=== PATIENT | male | born 1955 | race American Indian/Alaskan Native ===

== ENCOUNTER 2020-04-09 18:36 | Observation (INO) | payer OTHER, SELFPAY ==
[2020-04-09] MEDS ORDERED: SODIUM CHLORIDE 0.9% 1000 ML IV SOLN IV ONE (19:01)
[2020-04-09] MEDS ORDERED: methylPREDNISolone Sod Succinate 125 MG/2 ML INJ IV ONE (19:02)
[2020-04-09] MEDS ORDERED: IPRATROPIUM 0.02% NEBU 2.5 ML IH ONE (19:02)
[2020-04-09] MEDS ORDERED: ALBUTEROL 2.5 MG/3 ML NEBU IH ONE (19:02)
--- NOTE | 2020-04-09 19:38 | XRay Report ---
CHEST 1 VIEW 7:05 PM INDICATION / CLINICAL INFORMATION: Respiratory distress. Acute shortness breath. COMPARISON: None available. FINDINGS: SUPPORT DEVICES: None. HEART / MEDIASTINUM: The heart size and pulmonary vasculature are normal. The aorta is normal in audrey robyn. LUNGS / PLEURA: The lungs are hyperinflated. No other pulmonary or pleural abnormality. No pneumothor ax. ADDITIONAL FINDINGS: No significant additional findings. IMPRESSION: Hyperinflation of the lungs may be seen with emphysema or asthma. Signer Name: Mino Stubbs MD Signed: 04/09/2020 7:33 PM Workstation Name: [id number]
[2020-04-09 20:00] LABS: Hematocrit 29.7 % (35.5-45.6); Mean Corpuscular HGB Conc 30 % (32-34); Mean Corpuscular Volume 76 fl (84-94); Platelet Count 259 K/mm3 (140-440); Red Blood Count 3.91 M/mm3 (3.65-5.03)
[2020-04-09] MEDS ORDERED: cefTRIAXone/NS 2 GM/100 ML 2 GM/100 ML BAG IV SCH (20:00)
[2020-04-09 20:02] LABS: Red Cell Distribution Width 25.9 % (13.2-15.2)
[2020-04-09 20:09] LABS: Alanine Aminotransferase 8 units/L (7-56); Albumin 4.1 g/dL (3.9-5); BUN/Creatinine Ratio 16; Blood Urea Nitrogen 16 mg/dL (9-20); Calcium 9.1 mg/dL (8.4-10.2); Hemolysis Index 1
[2020-04-09 21:34] LABS: Basophils % (Manual) 0 % (0.0-1.8); Eosinophils % (Manual) 0 % (0.0-4.3); Total Cells Counted 100
[2020-04-09 21:41] LABS: Anisocytosis 2+; Hypochromasia 1+
[2020-04-09 21:43] LABS: Ovalocytes Rare; Target Cells Rare; Tear Drop Cells Rare
[2020-04-09 21:44] LABS: Platelet Estimate Consistent w Auto
--- NOTE | 2020-04-09 23:47 | Emergency Department Report ---
ED Asthma HPI - General Chief Complaint: Dyspnea/Respdistress Stated Complaint: DIFFICULTY BREATHING Time Seen by Provider: 04/09/20 18:52 Source: patient, EMS Mode of arrival: Stretcher Limitations: Other - History of Present Illness Initial Comments: Patient is a 64-year-old F [place] male with COPD who is on 2 L of oxygen at home who is presenting with some increased shortness of breath over the last day. Patient states that called paramedics to get a neb treatment since he did not have 1 currently at home. Patient received 2 duo nebs and magnesium in route. He was started on BiPAP on his arrival. He denies chest pain body aches fevers chills. Does have some mild dry cough. - Related Data Allergies Allergy/AdvReac Type Severity Reaction Status Date / Time No Known Allergies Allergy Unverified 04/09/20 18:53 ED Review of Systems ROS: Stated complaint: DIFFICULTY BREATHING Other details as noted in HPI Comment: All other systems reviewed and negative ED Past Medical Hx - Past Medical History Previous Medical History?: Yes Hx Hypertension: Yes Hx COPD: Yes - Surgical History Past Surgical History?: No - Social History Smoking Status: Former Smoker Substance Use Type: None ED Physical Exam - General Limitations: Other General appearance: alert, in no apparent distress - Head Head exam: Present: atraumatic, normocephalic - Eye Eye exam: Present: normal appearance - ENT ENT exam: Present: mucous membranes moist - Neck Neck exam: Present: normal inspection - Respiratory Respiratory exam: Present: respiratory distress, wheezes, prolonged expiratory. Absent: normal lung sounds bilaterally, rales, rhonchi, stridor - Cardiovascular Cardiovascular Exam: Present: regular rate, normal rhythm, normal heart sounds. Absent: systolic murmur, diastolic murmur, rubs, gallop - GI/Abdominal GI/Abdominal exam: Present: soft, normal bowel sounds. Absent: distended, tenderness, guarding, rebound, rigid - Rectal Rectal exam: Present: deferred - Extremities Exam Extremities exam: Present: normal inspection - Back Exam Back exam: Present: normal inspection - Neurological Exam Neurological exam: Present: alert, oriented X3 - Psychiatric Psychiatric exam: Present: normal affect, normal mood - Skin Skin exam: Present: warm, dry, intact, normal color. Absent: rash ED Course Vital Signs 04/09/20 04/09/20 04/09/20 18:45 18:51 19:00 Temperature 94.0 F L Pulse Rate 102 H 99 H 107 H Pulse Rate [ Bilateral Throughout] Respiratory 30 H 31 H 29 H Rate Respiratory Rate [Bilateral Throughout] Blood Pressure 145/80 167/108 O2 Sat by Pulse 100 99 100 Oximetry 04/09/20 04/09/20 04/09/20 19:15 19:25 19:30 Temperature Pulse Rate 104 H 106 H 89 Pulse Rate [ Bilateral Throughout] Respiratory 14 34 H 27 H Rate Respiratory Rate [Bilateral Throughout] Blood Pressure 161/99 167/108 160/93 O2 Sat by Pulse 98 98 100 Oximetry 04/09/20 04/09/20 20:19 22:33 Temperature Pulse Rate Pulse Rate [ 108 H Bilateral Throughout] Respiratory Rate Respiratory 30 H Rate [Bilateral Throughout] Blood Pressure O2 Sat by Pulse 98 Oximetry ED Medical Decision Making - Lab Data Result diagrams: 04/09/20 19:12 04/09/20 19:12 - Radiology Data atient: ZARI UREÑA MR#: [id number] : 1955 Acct:[id number] Age/Sex: 64 / M ADM Date: 04/09/20 Loc: ED Attending Dr: Ordering Physician: SHELIA PERRY MD Date of Service: 04/09/20 Procedure(s): XR chest 1V ap Accession Number(s): [id number] cc: SHELIA PERRY MD Fluoro Time In Minutes: CHEST 1 VIEW 7:05 PM INDICATION / CLINICAL INFORMATION: Respiratory distress. Acute shortness breath. COMPARISON: None available. FINDINGS: SUPPORT DEVICES: None. HEART / MEDIASTINUM: The heart size and pulmonary vasculature are normal. The aorta is normal in caliber. LUNGS / PLEURA: The lungs are hyperinflated. No other pulmonary or pleural abnormality. No pneumothorax. ADDITIONAL FINDINGS: No significant additional findings. IMPRESSION: Hyperinflation of the lungs may be seen with emphysema or asthma. Signer Name: Mino Stubbs MD Signed: 04/09/2020 7:33 PM Workstation Name: [id number] - Medical Decision Making Patient was given additional hour-long neb treatment and Solu-Medrol. Patient stated he felt somewhat improved. Took him off his BiPAP and he was placed back on his 2 L of oxygen. Patient states he is fine as long as he sitting still. Did note that the patient just with swinging his legs over to the side of the bed to urinate did desaturate to the low 90s and his heart rate went from 100- 130. When I went to check on him the patient is was unable to use more than 2-3 words in a sentence. This is improved over approximately 2 minutes Do not believe the patient is ready for discharge at this time. Patient will be admitted for observation. Critical Care Time: Yes (30) Critical care attestation.: If time is entered above; I have spent that time in minutes in the direct care of this critically ill patient, excluding procedure time. ED Disposition Clinical Impression: COPD exacerbation Disposition: DC-09 OP ADMIT IP TO THIS HOSP Is pt being admited?: Yes Does the pt Need Aspirin: No Condition: Stable Instructions: Chronic Obstructive Pulmonary Disease (ED) Time of Disposition: 23:51
[2020-04-10] MEDS ORDERED: MORPHINE 2 MG/1 ML INJ IV PRN (00:39)
[2020-04-10] MEDS ORDERED: ACETAMINOPHEN 325 MG TAB PO PRN (00:39)
[2020-04-10] MEDS ORDERED: MAGNESIUM HYDROXIDE (MOM) ORAL LIQD UDC PO PRN (00:39)
[2020-04-10] MEDS ORDERED: ONDANSETRON 4 MG/2 ML INJ IV PRN (00:39)
--- NOTE | 2020-04-10 00:55 | History and Physical Report ---
History of Present Illness Date of examination: 04/09/20 Date of admission: 04/09/20 23:51 Chief complaint: Shortness of breath History of present illness: 64-year-old male with known history of hypertension and COPD on 2 L of oxygen at home presenting to the emergency room today complaining of shortness of breath. Patient did not have any nebulizing treatments at home and therefore called EMS. In route to the hospital patient received DuoNeb treatment and IV magnesium. Patient denies any chest pain, no fever or chills, no nausea vomiting and no abdominal pain. No headache or dizziness. Patient denies any sick contacts and no recent travel. He denies any contact with anyone with COVID-19. Work-up in the emergency room chest x-ray did not show any acute findings. Patient is being admitted for COPD exacerbation. Past History Past Medical History: COPD, hypertension Past Surgical History: No surgical history Social history: smoking (Smokes 1/2 pack of cigarette daily) Family history: no significant family history Medications and Allergies Allergies Allergy/AdvReac Type Severity Reaction Status Date / Time No Known Allergies Allergy Unverified 04/09/20 18:53 Active Meds: Active Medications Acetaminophen (Tylenol) 650 mg PO Q4H PRN PRN Reason: Pain MILD(1-3)/Fever >100.5/HERMAN Albuterol/Ipratropium (Duoneb *Not For Prn Use*) 1 ampul IH Q4HRT [facility] Heparin Sodium (Porcine) (Heparin) 5,000 unit SUB-Q Q8HR [facility] Ceftriaxone Sodium (Rocephin/Ns 2 Gm/100 Ml) 2 gm in 100 mls @ 200 mls/hr IV Q24H [facility]LE; Protocol Last Admin: 04/09/20 19:24 Dose: 200 mls/hr Documented by: Azithromycin 500 mg/ Sodium (Chloride) 250 mls @ 250 mls/hr IV Q24HR [facility]ERELLE; Prot ocol Magnesium Hydroxide (Milk Of Magnesia) 30 ml PO Q4H PRN PRN Reason: Constipation Methylprednisolone Sodium Succinate (Solu-Medrol) 40 mg IV Q8HR [facility] Morphine Sulfate (Morphine) 2 mg IV Q4H PRN PRN Reason: Pain, Moderate (4-6) Ondansetron HCl (Zofran) 4 mg IV Q8H PRN PRN Reason: Nausea And Vomiting Sodium Chloride (Sodium Chloride Flush Syringe 10 Ml) 10 ml IV BID CHERELLE Sodium Chloride (Sodium Chloride Flush Syringe 10 Ml) 10 ml IV PRN PRN PRN Reason: LINE FLUSH Review of Systems Constitutional: no fever, no chills Ears, nose, mouth and throat: no nasal congestion, no sore throat Cardiovascular: no chest pain, no palpitations Respiratory: cough, shortness of breath Gastrointestinal: no abdominal pain, no nausea, no vomiting, no diarrhea Genitourinary Male: no dysuria, no hematuria, no flank pain Musculoskeletal: no neck pain, no low back pain Integumentary: no rash, no pruritis Neurological: no headaches, no confusion Psychiatric: no anxiety, no depression Exam - Constitutional Vitals: Temp Pulse Resp BP Pulse Ox 94.0 F L 108 H 30 H 160/93 98 04/09/20 18:45 04/09/20 20:19 04/09/20 20:19 04/09/20 19:30 04/09/20 22:33 General appearance: Present: mild distress, well-nourished - EENT Eyes: Present: PERRL, EOM intact. Absent: scleral icterus ENT: hearing intact, clear oral mucosa, dentition normal - Neck Neck: Present: supple, normal ROM - Respiratory Respiratory effort: normal Respiratory: bilateral: wheezing - Cardiovascular Rhythm: regular Heart Sounds: Present: S1 & S2. Absent: gallop, systolic murmur, rub - Extremities Extremities: no ischemia, pulses intact, pulses symmetrical, No edema, normal temperature, Full ROM Peripheral Pulses: within normal limits - Abdominal General gastrointestinal: Present: soft, non-tender, non-distended, normal bowel sounds. Absent: mass - Integumentary Integumentary: Present: clear, warm, dry - Musculoskeletal Musculoskeletal: strength equal bilaterally - Psychiatric Psychiatric: appropriate mood/affect, intact judgment & insight, memory intact, cooperative - Neurologic Neurologic: CNII-XII intact, no focal deficits, moves all extremities Results - Labs CBC & Chem 7: 04/09/20 19:12 04/09/20 19:12 Labs: Abnormal lab results 04/09/20 04/09/20 Range/Units 19:12 19:12 Hgb 9.0 L (11.8-15.2) gm/dl Hct 29.7 L (35.5-45.6) % MCV 76 L (84-94) fl MCH 23 L (28-32) pg MCHC 30 L (32-34) % RDW 25.9 H (13.2-15.2) % Seg Neuts % (Manual) 90.0 H (40.0-70.0) % Lymphocytes % (Manual) 7.0 L (13.4-35.0) % Seg Neutrophils # Man 9.7 H (1.8-7.7) K/mm3 Lymphocytes # (Manual) 0.8 L (1.2-5.4) K/mm3 Glucose 156 H (75-100) mg/dL Assessment and Plan - Patient Problems (1) COPD exacerbation Current Visit: Yes Status: Acute Plan to address problem: Patient placed on nebulizing treatments and IV steroid. We will keep O2 saturation greater or equal to 94%. (2) Hypertension Current Visit: Yes Status: Acute Plan to address problem: We will resume routine home medications once are reconciled. Will monitor vital signs closely. (3) Tobacco abuse Current Visit: Yes Status: Acute Plan to address problem: Patient counseled on quitting tobacco abuse. (4) DVT prophylaxis Current Visit: Yes Status: Acute Plan to address problem: Patient placed on subcutaneous heparin. (5) Full code status Current Visit: Yes Status: Acute
[2020-04-10] MEDS: IPRATROPIUM/ALBUTEROL SULFATE 3 ML AMPUL.NEB IH SCH ×2 (04:00→07:53)
[2020-04-10] MEDS ORDERED: IPRATROPIUM/ALBUTEROL SULFATE 3 ML AMPUL.NEB IH ONE (07:40)
[2020-04-10] MEDS ORDERED: methylPREDNISolone Sod Succinate 40 MG/1 ML INJ ONE (08:17)
[2020-04-10] MEDS ORDERED: HEPARIN 5,000 UNIT/1 ML VIAL ONE (08:17)
[2020-04-10] MEDS: methylPREDNISolone Sod Succinate 40 MG/1 ML INJ IV SCH ×3 (08:42→22:05)
[2020-04-10] MEDS: HEPARIN 5,000 UNIT/1 ML VIAL SUB-Q SCH ×3 (08:42→22:06)
[2020-04-10] MEDS: AZITHROMYCIN 500 MG in SODIUM CHLORIDE 0.9% 250ML 250 ML IV SCH ×2 (08:43→10:47)
[2020-04-10 09:06] LABS: Bilirubin,Urine NEG (Negative); Blood,Urine NEG (Negative); Color,Urine Yellow (Yellow); Mucus,Urine FEW /HPF; Protein,Urine <15 mg/dL mg/dL (Negative); Urobilinogen,Urine < 2.0 mg/dL (<2.0)
[2020-04-10] MEDS ORDERED: ALBUTEROL 2.5 MG/3 ML NEBU IH PRN (09:36)
[2020-04-10 11:23] LABS: C-Reactive Protein 0.1 mg/dL (0.00-1.30)
--- NOTE | 2020-04-10 12:59 | Progress Note ---
Assessment and Plan Assessment and plan: 64-year-old male with known history of hypertension and COPD on 2 L of oxygen at home presenting to the emergency room today complaining of shortness of breath. Patient did not have any nebulizing treatments at home and therefore called EMS. In route to the hospital patient received DuoNeb treatment and IV magnesium. Patient denies any chest pain, no fever or chills, no nausea vomiting and no abdominal pain. No headache or dizziness. Patient denies any sick contacts and no recent travel. He denies any contact with anyone with COVID-19. Work-up in the emergency room chest x-ray did not show any acute findings. Patient is being admitted for COPD exacerbation. (1) COPD exacerbation Current Visit: Yes Status: Acute Plan to address problem: Patient placed on nebulizing treatments and IV steroid. We will keep O2 saturation greater or equal to 94%. Considering current pandemic will rule out COVID-19. (2) Hypertension Current Visit: Yes Status: Acute Plan to address problem: We will resume routine home medications once are reconciled. Will monitor vital signs closely. (3) Tobacco abuse Current Visit: Yes Status: Acute Plan to address problem: Patient counseled on quitting tobacco abuse. (4) DVT prophylaxis Current Visit: Yes Status: Acute Plan to address problem: Patient placed on subcutaneous heparin. (5) Full code status Current Visit: Yes Status: Acute Anticipate discharge in 24 hours will need to replenish off home meds. Plan discussed with the patient in detail History Interval history: Patient seen and examined reports improvement in symptoms. He reports that he does have history of COPD but run out of his medications. Hospitalist Physical - Physical exam Narrative exam: VITAL SIGNS: Reviewed. GENERAL: The patient appears normally developed, Vital signs as documented. HEAD: No signs of head trauma. EYES: Pupils are equal. Extraocular motions intact. EARS: Hearing grossly intact. MOUTH: Oropharynx is normal. NECK: No adenopathy, no JVD. CHEST: Chest with diminished breath sounds bilaterally. No wheezes, rales, or rhonchi. CARDIAC: Regular rate and rhythm. S1 and S2, without murmurs, gallops, or rubs. VASCULAR: No Edema. Peripheral pulses normal and equal in all extremities. ABDOMEN: Soft, non tender and non distended. No rebound or guarding, and no masses palpated. Bowel Sounds normal. MUSCULOSKELETAL: Good range of motion of all major joints. Extremities without clubbing, cyanosis or edema. NEUROLOGIC EXAM: Alert and oriented x 3 No focal sensory or strength deficits. Speech normal. Follows commands. PSYCHIATRIC: Mood normal. SKIN: detail exam as documented in skin assessment - Constitutional Vitals: Temp Pulse Resp BP Pulse Ox 94.0 F L 89 24 142/83 95 04/09/20 18:45 04/10/20 09:45 04/10/20 09:45 04/10/20 03:02 04/10/20 09:45 General appearance: Present: mild distress, well-nourished Results - Labs CBC & Chem 7: 04/09/20 19:12 04/10/20 09:57 Labs: Laboratory Last Values WBC 10.8 K/mm3 (4.5-11.0) 04/09/20 19:12 RBC 3.91 M/mm3 (3.65-5.03) 04/09/20 19:12 Hgb 9.0 gm/dl (11.8-15.2) L 04/09/20 19:12 Hct 29.7 % (35.5-45.6) L 04/09/20 19:12 MCV 76 fl (84-94) L 04/09/20 19:12 MCH 23 pg (28-32) L 04/09/20 19:12 MCHC 30 % (32-34) L 04/09/20 19:12 RDW 25.9 % (13.2-15.2) H 04/09/20 19:12 Plt Count 259 K/mm3 (140-440) 04/09/20 19:12 Add Manual Diff Complete 04/09/20 19:12 Total Counted 100 04/09/20 19:12 Seg Neuts % (Manual) 90.0 % (40.0-70.0) H 04/09/20 19:12 Band Neutrophils % 0 % 04/09/20 19:12 Lymphocytes % (Manual) 7.0 % (13.4-35.0) L 04/09/20 19:12 Reactive Lymphs % (Man) 0 % 04/09/20 19:12 Monocytes % (Manual) 3.0 % (0.0-7.3) 04/09/20 19:12 Eosinophils % (Manual) 0 % (0.0-4.3) 04/09/20 19:12 Basophils % (Manual) 0 % (0.0-1.8) 04/09/20 19:12 Metamyelocytes % 0 % 04/09/20 19:12 Myelocytes % 0 % 04/09/20 19:12 Promyelocytes % 0 % 04/09/20 19:12 Blast Cells % 0 % 04/09/20 19:12 Nucleated RBC % Not Reportable 04/09/20 19:12 Seg Neutrophils # Man 9.7 K/mm3 (1.8-7.7) H 04/09/20 19:12 Band Neutrophils # 0.0 K/mm3 04/09/20 19:12 Lymphocytes # (Manual) 0.8 K/mm3 (1.2-5.4) L 04/09/20 19:12 Abs React Lymphs (Man) 0.0 K/mm3 04/09/20 19:12 Monocytes # (Manual) 0.3 K/mm3 (0.0-0.8) 04/09/20 19:12 Eosinophils # (Manual) 0.0 K/mm3 (0.0-0.4) 04/09/20 19:12 Basophils # (Manual) 0.0 K/mm3 (0.0-0.1) 04/09/20 19:12 Metamyelocytes # 0.0 K/mm3 04/09/20 19:12 Myelocytes # 0.0 K/mm3 04/09/20 19:12 Promyelocytes # 0.0 K/mm3 04/09/20 19:12 Blast Cells # 0.0 K/mm3 04/09/20 19:12 WBC Morphology Not Reportable 04/09/20 19:12 Hypersegmented Neuts Not Reportable 04/09/20 19:12 Hyposegmented Neuts Not Reportable 04/09/20 19:12 Hypogranular Neuts Not Reportable 04/09/20 19:12 Smudge Cells Not Reportable 04/09/20 19:12 Toxic Granulation Not Reportable 04/09/20 19:12 Toxic Vacuolation Not Reportable 04/09/20 19:12 Dohle Bodies Not Reportable 04/09/20 19:12 Pelger-Huet Anomaly Not Reportable 04/09/20 19:12 Jacinta Rods Not Reportable 04/09/20 19:12 Platelet Estimate Consistent w auto 04/09/20 19:12 Clumped Platelets Not Reportable 04/09/20 19:12 Plt Clumps, EDTA Not Reportable 04/09/20 19:12 Large Platelets Not Reportable 04/09/20 19:12 Giant Platelets Not Reportable 04/09/20 19:12 Platelet Satelliting Not Reportable 04/09/20 19:12 Plt Morphology Comment Not Reportable 04/09/20 19:12 RBC Morphology Not Reportable 04/09/20 19:12 Dimorphic RBCs Not Reportable 04/09/20 19:12 Polychromasia Rare 04/09/20 19:12 Hypochromasia 1+ 04/09/20 19:12 Poikilocytosis Not Reportable 04/09/20 19:12 Anisocytosis 2+ 04/09/20 19:12 Microcytosis Rare 04/09/20 19:12 Macrocytosis Not Reportable 04/09/20 19:12 Spherocytes Not Reportable 04/09/20 19:12 Pappenheimer Bodies Not Reportable 04/09/20 19:12 Sickle Cells Not Reportable 04/09/20 19:12 Target Cells Rare 04/09/20 19:12 Tear Drop Cells Rare 04/09/20 19:12 Ovalocytes Rare 04/09/20 19:12 Helmet Cells Not Reportable 04/09/20 19:12 [place] Bodies Not Reportable 04/09/20 19:12 [place] Rings Not Reportable 04/09/20 19:12 [place] Cells Not Reportable 04/09/20 19:12 Bite Cells Not Reportable 04/09/20 19:12 Crenated Cell Not Reportable 04/09/20 19:12 Elliptocytes Not Reportable 04/09/20 19:12 Acanthocytes (Spur) Not Reportable 04/09/20 19:12 Rouleaux Not Reportable 04/09/20 19:12 Hemoglobin C Crystals Not Reportable 04/09/20 19:12 Schistocytes Not Reportable 04/09/20 19:12 Malaria parasites Not Reportable 04/09/20 19:12 Lefty Bodies Not Reportable 04/09/20 19:12 Hem Pathologist Commnt No 04/09/20 19:12 D-Dimer < 135.00 ng/mlDDU (0-234) 04/10/20 09:57 Sodium 143 mmol/L (137-145) 04/09/20 19:12 Potassium 4.1 mmol/L (3.6-5.0) 04/09/20 19:12 Chloride 104.8 mmol/L (98-107) 04/09/20 19:12 Carbon Dioxide 29 mmol/L (22-30) 04/09/20 19:12 Anion Gap 13 mmol/L 04/09/20 19:12 BUN 16 mg/dL (9-20) 04/09/20 19:12 Creatinine 1.0 mg/dL (0.8-1.3) 04/09/20 19:12 Estimated GFR > 60 ml/min 04/09/20 19:12 BUN/Creatinine Ratio 16 % 04/09/20 19:12 Glucose 100 mg/dL (75-100) 04/10/20 09:57 Lactic Acid 1.30 mmol/L (0.7-2.0) 04/09/20 23:58 Calcium 9.1 mg/dL (8.4-10.2) 04/09/20 19:12 Ferritin 5.5 ng/mL (30.0-300.0) L 04/10/20 09:57 Total Bilirubin 0.40 mg/dL (0.1-1.2) 04/09/20 19:12 AST 11 units/L (5-40) 04/09/20 19:12 ALT 8 units/L (7-56) 04/09/20 19:12 Alkaline Phosphatase 50 units/L (35-129) 04/09/20 19:12 Lactate Dehydrogenase 224 units/L (91-180) H 04/10/20 09:57 C-Reactive Protein 0.10 mg/dL (0.00-1.30) 04/10/20 09:57 Total Protein 6.8 g/dL (6.3-8.2) 04/09/20 19:12 Albumin 4.1 g/dL (3.9-5) 04/09/20 19:12 Albumin/Globulin Ratio 1.5 % 04/09/20 19:12 Procalcitonin < 0.05 ng/mL (<0.15) 04/10/20 09:57 Urine Color Yellow (Yellow) 04/10/20 08:50 Urine Turbidity Clear (Clear) 04/10/20 08:50 Urine pH 6.0 (5.0-7.0) 04/10/20 08:50 Ur Specific [place] 1.018 (1.003-1.030) 04/10/20 08:50 Urine Protein <15 mg/dl mg/dL (Negative) 04/10/20 08:50 Urine Glucose (UA) Neg mg/dL (Negative) 04/10/20 08:50 Urine Ketones Neg mg/dL (Negative) 04/10/20 08:50 Urine Blood Neg (Negative) 04/10/20 08:50 Urine Nitrite Neg (Negative) 04/10/20 08:50 Urine Bilirubin Neg (Negative) 04/10/20 08:50 Urine Urobilinogen < 2.0 mg/dL (<2.0) 04/10/20 08:50 Ur Leukocyte Esterase Neg (Negative) 04/10/20 08:50 Urine WBC (Auto) 1.0 /HPF (0.0-6.0) 04/10/20 08:50 Urine RBC (Auto) 1.0 /HPF (0.0-6.0) 04/10/20 08:50 Urine Mucus Few /HPF 04/10/20 08:50 Microbiology: Microbiology 04/09/20 19:12 Peripheral/Venous Blood Culture - Preliminary Culture in Progress 04/09/20 19:12 Peripheral/Venous Blood Culture - Preliminary Culture in Progress Koroma/IV: Voiding Method Toilet IV Catheter Type [Left Forearm INT / Saline Lock ] Active Medications - Current Medications Current Medications: Generic Name Dose Route Start Last Admin Trade Name Freq PRN Reason Stop Dose Admin Acetaminophen 650 mg 04/10/20 00:39 Tylenol PO Q4H PRN Pain MILD(1-3)/Fever >100.5/HERMAN Albuterol 2.5 mg 04/10/20 09:36 Proventil IH Q4HRT PRN Shortness Of Breath Arformoterol Tartrate 15 mcg 04/10/20 20:00 Brovana Nebu IH Q12HRT [facility]ERELLE Budesonide 0.5 mg 04/10/20 20:00 Pulmicort IH Q12HRT [facility] Heparin Sodium (Porcine) 5,000 unit 04/10/20 06:00 04/10/20 08:42 Heparin SUB-Q 5,000 unit Q8HR [facility]ERELLE Administration Ceftriaxone Sodium 2 gm in 100 mls @ 200 mls/hr 04/09/20 20:00 04/09/20 19:24 Rocephin/Ns 2 Gm/100 Ml IV 200 mls/hr Q24H [facility]ERELLE Administration Protocol Azithromycin 500 mg/ Sodium 250 mls @ 250 mls/hr 04/09/20 20:00 04/10/20 10:47 Chloride IV Not Given Q24HR [facility] Protocol Magnesium Hydroxide 30 ml 04/10/20 00:39 Milk Of Magnesia PO Q4H PRN Constipation Methylprednisolone Sodium Succinate 40 mg 04/10/20 06:00 04/10/20 08:42 Solu-Medrol IV 40 mg Q8HR CHERELLE Administration Montelukast Sodium 10 mg 04/10/20 22:00 Singulair PO QHS [facility] Morphine Sulfate 2 mg 04/10/20 00:39 Morphine IV Q4H PRN Pain, Moderate (4-6) Ondansetron HCl 4 mg 04/10/20 00:39 Zofran IV Q8H PRN Nausea And Vomiting Sodium Chloride 10 ml 04/10/20 10:00 04/10/20 10:43 Sodium Chloride Flush Syringe 10 Ml IV Not Given BID CHERELLE Sodium Chloride 10 ml 04/10/20 00:39 Sodium Chloride Flush Syringe 10 Ml IV PRN PRN LINE FLUSH
[2020-04-10] MEDS: BUDESONIDE 0.5 MG/2 ML NEBU IH SCH (21:24)
[2020-04-10] MEDS: ARFORMOTEROL 15 MCG/2 ML NEBU IH SCH (21:24)
[2020-04-10] MEDS ORDERED: MONTELUKAST 10 MG TAB PO SCH (22:00)
[2020-04-11] MEDS: HEPARIN 5,000 UNIT/1 ML VIAL SUB-Q SCH ×2 (06:08→13:46)
[2020-04-11] MEDS: methylPREDNISolone Sod Succinate 40 MG/1 ML INJ IV SCH ×2 (06:08→13:46)
--- NOTE | 2020-04-11 08:12 | Discharge Summary ---
Providers - Providers Date of Admission: 04/09/20 23:51 Attending physician: HARMAN LANDON MD Primary care physician: TOOL CRIB CLERK Hospitalization Reason for admission: shortness of breath Condition: Stable Hospital course: 64-year-old male with known history of hypertension and COPD on 2 L of oxygen at home presenting to the emergency room today complaining of shortness of breath. Patient did not have any nebulizing treatments at home and therefore called EMS. In route to the hospital patient received DuoNeb treatment and IV magnesium. Patient denies any chest pain, no fever or chills, no nausea vomiting and no abdominal pain. No headache or dizziness. Patient denies any sick contacts and no recent travel. He denies any contact with anyone with COVID-19. Work-up in the emergency room chest x-ray did not show any acute findings. Patient is being admitted for COPD exacerbation. 04/11 Patient reports that he is at his base line level at this time. He has home oxygen. He reports that he ran out of his nebulizer medications. Considering the current global pandemic I have ordered COVID-19 testing to ensure that there is no underlying viral infection. Prior to discharge. I do not have any family contact information and he states that he still cannot find his family. Home meds were renewed. (1) COPD exacerbation Current Visit: Yes Status: Acute Plan to address problem: Patient placed on nebulizing treatments and IV steroid. We will keep O2 satu ration greater or equal to 94%. Considering current pandemic will rule out COVID-19. (2) Hypertension Current Visit: Yes Status: Acute Plan to address problem: We will resume routine home medications once are reconciled. Will monitor vital signs closely. (3) Tobacco abuse Current Visit: Yes Status: Acute Plan to address problem: Patient counseled on quitting tobacco abuse. 50 minutes counseling provided risk associated with having the home O2 also discussed in detail. ( Disposition: DC-01 TO HOME OR SELFCARE Time spent for discharge: 35 minutes Core Measure Documentation - Palliative Care Palliative Care/ Comfort Measures: Not Applicable - Core Measures Any of the following diagnoses?: none Exam - Physical Exam Narrative exam: VITAL SIGNS: Reviewed. GENERAL: The patient appears normally developed, Vital signs as documented. HEAD: No signs of head trauma. EYES: Pupils are equal. Extraocular motions intact. EARS: Hearing grossly intact. MOUTH: Oropharynx is normal. NECK: No adenopathy, no JVD. CHEST: Chest with diminished breath sounds bilaterally. No wheezes, rales, or rhonchi. CARDIAC: Regular rate and rhythm. S1 and S2, without murmurs, gallops, or rubs. VASCULAR: No Edema. Peripheral pulses normal and equal in all extremities. ABDOMEN: Soft, non tender and non distended. No rebound or guarding, and no masses palpated. Bowel Sounds normal. MUSCULOSKELETAL: Good range of motion of all major joints. Extremities without clubbing, cyanosis or edema. NEUROLOGIC EXAM: Alert and oriented x 3 No focal sensory or strength deficits. Speech normal. Follows commands. PSYCHIATRIC: Mood normal. SKIN: detail exam as documented in skin assessment - Constitutional Vitals: Temp Pulse Resp BP Pulse Ox 98.0 F 90 18 151/79 96 04/10/20 19:37 04/11/20 00:00 04/10/20 21:24 04/10/20 19:37 04/10/20 21:29 Plan Activity: advance as tolerated, fall precautions Diet: low fat Special Instructions: record daily weights, record daily BP diary Additional Instructions: Follow with primary business controller. Patient reports that he follows at the [place]. Follow up with: PRIMARY CARE, [Primary Care Provider] - 7 Days Prescriptions: Montelukast Sodium 10 mg PO DAILY #30 tablet Prednisone [predniSONE 5 mg (6-Day Pack, 21 Tabs)] 5 mg PO .TAPER #1 tab.ds.pk ALBUTEROL NEB's [Proventil 0.083% NEBS] 2.5 mg IH TID PRN #90 neb PRN Reason: Wheezing Budesonide/Formoterol Fumarate [Symbicort 160-4.5 Mcg Inhaler] 10.2 gm IH BID #1 hfa.aer.ad Azithromycin [Zithromax TAB] 500 mg PO QDAY #5 tablet
[2020-04-11 08:23] LABS: INR 1.07 (0.87-1.13)
[2020-04-11 08:27] LABS: BUN/Creatinine Ratio 20; Blood Urea Nitrogen 18 mg/dL (9-20); Calcium 9.2 mg/dL (8.4-10.2); Hemolysis Index 3
[2020-04-11] MEDS: BUDESONIDE 0.5 MG/2 ML NEBU IH SCH (08:40)
[2020-04-11] MEDS: ARFORMOTEROL 15 MCG/2 ML NEBU IH SCH (08:40)
[2020-04-11 08:48] LABS: Hematocrit 25.9 % (35.5-45.6); Hemoglobin 8.1 gm/dl (11.8-15.2); Mean Corpuscular HGB Conc 31 % (32-34); Mean Corpuscular Volume 74 fl (84-94)
[2020-04-11 09:13] LABS: Platelet Count 176 K/mm3 (140-440); Red Cell Distribution Width 25.5 % (13.2-15.2)
[2020-04-11] MEDS ORDERED: AZITHROMYCIN 250 MG TAB PO SCH (10:00)
[2020-04-11 11:17] LABS: Eosinophils % (Manual) 0 % (0.0-4.3); Monocytes % (Manual) 0 % (0.0-7.3); Total Cells Counted 100
[2020-04-11 11:18] LABS: Hypochromasia 1+; Target Cells 1+; Tear Drop Cells Few
[2020-04-11 11:19] LABS: Platelet Estimate Consistent w Auto
[2020-04-11 12:37] VITALS: BP 136/63
== END 2020-04-11 15:37 | disposition home or self-care (01) ==
LOC: ED 18:36 → 4A 23:51
PROVIDERS: ADMIT Internal Medicine Geriatric Medicine; ATTEND Internal Medicine
DX: J44.1 Chronic obstructive pulmonary disease with (acute) exacerbation (principal); Z20.828 Contact with and (suspected) exposure to other viral communicable diseases; I10 Essential (primary) hypertension; F17.210 Nicotine dependence, cigarettes, uncomplicated; Z79.899 Other long term (current) drug therapy
CPT/HCPCS: 36415; 71045; 80048; 80053; 81001; 82140; 82728; 82947; 83615; 84145; 85025; 85379; 85610; 86140; 87040; 94640; 94644; 94760; 96365; 96367; 96372; 96375; 96376; 99291; G0378; J0456; J0696; J1644; J2920; J2930; J7030; J7050; U0003; 85007; 99406

== ENCOUNTER 2020-06-16 03:42 | Emergency (ER) | payer OTHER ==
[2020-06-16] MEDS ORDERED: SODIUM CHLORIDE 0.9% 500 ML 500 ML IV ONE (03:45)
[2020-06-16] MEDS ORDERED: IPRATROPIUM 0.02% NEBU 2.5 ML IH ONE (03:45)
[2020-06-16] MEDS ORDERED: ALBUTEROL 2.5 MG/3 ML NEBU IH ONE (03:45)
--- NOTE | 2020-06-16 03:48 | Emergency Department Report ---
ED General Adult HPI - General Chief complaint: Dyspnea/Respdistress Stated complaint: COPD PUI?: Yes Time Seen by Provider: 06/16/20 03:45 Source: patient, EMS (Verbal report received from emergency medical services. EMS documentation not available at time of chart dictation ), RN notes reviewed, old records reviewed Mode of arrival: Stretcher Limitations: No Limitations - History of Present Illness Initial comments: The patient was evaluated in the emergency department for symptoms described in the history of present illness. He/she was evaluated in the context of the global COVID-19 pandemic, which necessitated consideration that the patient might be at risk for infection with the virus that causes COVID-19. Instit utional protocols and algorithms that pertain to the evaluation of patients at risk for COVID-19 are in a state of rapid change based on information released by regulatory bodies including the CDC and federal and state organizations. These policies and algorithms were followed during the patient's care in the emergency department. Please note that these policies, procedures and recommendations changed on a rapid basis. During the entire history and physical examination, had a complete personal protective equipment. Primary care doctor: [facility] Past medical history: COPD, on chronic home oxygen The patient is a 65-year-old gentleman. He is not known to myself previously. He is brought to the hospital by emergency medical services with a complaint of painless shortness of breath. Symptoms started a few hours ago. Patient has been compliant with home oxygen. Denies fever, chills, loss of taste and smell. No exposure to Covid. No leg pain or leg swelling. No recent surgery or hospitalizations. EMS reports the patient was hypoxic, wheezing, and moderate respiratory distress in the field. Patient given steroids, magnesium, CPAP and albuterol. These have markedly improved the patient's symptoms. He states that he feels almost back to baseline. He has chronic cough. No mucus production which is new or different. He is not having physical pain at this time. -: Sudden, hour(s) Consistency: constant, now resolved Improves with: medication, other Worsens with: movement - Related Data Home Medications Medication Instructions Recorded Confirmed Last Taken Amiloride HCl-Hctz 5-50 mg Tab 5 - 50 mg PO ONCE 04/10/20 04/10/20 04/08/20 Hydroxyurea 500 mg PO TID 04/10/20 04/10/20 04/08/20 Sildenafil 100 mg PO PRN 04/10/20 04/10/20 Unknown Previous Rx's Medication Instructions Recorded Last Taken Type Montelukast Sodium 10 mg PO DAILY #30 tablet 04/11/20 Unknown Rx ALBUTEROL NEB's [Proventil 0.083% 2.5 mg IH TID PRN #90 neb 06/16/20 Unknown Rx NEBS] Albuterol Sulfate [Proair 90 mcg IH Q4HR PRN #2 aer.pow.ba 06/16/20 Unknown Rx Respiclick] Azithromycin [Zithromax TAB] 500 mg PO QDAY #5 tablet 06/16/20 Unknown Rx Budesonide/Formoterol Fumarate 10.2 gm IH BID #1 hfa.aer.ad 06/16/20 Unknown Rx [Symbicort 160-4.5 Mcg Inhaler] Ferrous Sulfate [Feosol 325 MG tab] 325 mg PO TID #90 tablet 06/16/20 Unknown Rx Ipratropium [Atrovent NEB] 0.5 mg IH Q4HR #2 ml 06/16/20 Unknown Rx Prednisone [predniSONE 5 mg (6-Day 5 mg PO .TAPER #1 tab.ds.pk 06/16/20 Unknown Rx Pack, 21 Tabs)] Allergies Allergy/AdvReac Type Severity Reaction Status Date / Time No Known Allergies Allergy Unverified 04/09/20 18:53 ED Review of Systems ROS: Stated complaint: COPD Other details as noted in HPI Constitutional: malaise. denies: fever Eyes: denies: eye discharge ENT: congestion Respiratory: cough, shortness of breath, wheezing Cardiovascular: denies: chest pain Gastrointestinal: denies: abdominal pain Genitourinary: denies: dysuria Musculoskeletal: denies: back pain Neurological: denies: headache Hematological/Lymphatic: denies: easy bleeding ED Past Medical Hx - Past Medical History Hx Hypertension: Yes Hx COPD: Yes - Social History Smoking Status: Current Every Day Smoker - Medications Home Medications: Home Medications Medication Instructions Recorded Confirmed Last Taken Type Amiloride HCl-Hctz 5-50 mg Tab 5 - 50 mg PO ONCE 04/10/20 04/10/20 04/08/20 History Hydroxyurea 500 mg PO TID 04/10/20 04/10/20 04/08/20 History Sildenafil 100 mg PO PRN 04/10/20 04/10/20 Unknown History Montelukast Sodium 10 mg PO DAILY #30 tablet 04/11/20 Unknown Rx ALBUTEROL NEB's [Proventil 0.083% 2.5 mg IH TID PRN #90 neb 06/16/20 Unknown Rx NEBS] Albuterol Sulfate [Proair 90 mcg IH Q4HR PRN #2 aer.pow.ba 06/16/20 Unknown Rx Respiclick] Azithromycin [Zithromax TAB] 500 mg PO QDAY #5 tablet 06/16/20 Unknown Rx Budesonide/Formoterol Fumarate 10.2 gm IH BID #1 hfa.aer.ad 06/16/20 Unknown Rx [Symbicort 160-4.5 Mcg Inhaler] Ferrous Sulfate [Feosol 325 MG tab] 325 mg PO TID #90 tablet 06/16/20 Unknown Rx Ipratropium [Atrovent NEB] 0.5 mg IH Q4HR #2 ml 06/16/20 Unknown Rx Prednisone [predniSONE 5 mg (6-Day 5 mg PO .TAPER #1 tab.ds.pk 06/16/20 Unknown Rx Pack, 21 Tabs)] ED Physical Exam - General Limitations: No Limitations General appearance: alert, anxious - Head Head exam: Present: atraumatic, normocephalic - Eye Eye exam: Present: normal appearance, EOMI. Absent: nystagmus - ENT ENT exam: Present: normal exam, normal orophraynx, mucous membranes moist, normal external ear exam - Neck Neck exam: Present: normal inspection, full ROM. Absent: tenderness, meningismus - Respiratory Respiratory exam: Present: wheezes, rhonchi, accessory muscle use. Absent: respiratory distress, rales, stridor - Cardiovascular Cardiovascular Exam: Present: normal rhythm, tachycardia, normal heart sounds. Absent: bradycardia, irregular rhythm, systolic murmur, diastolic murmur, rubs, gallop - GI/Abdominal GI/Abdominal exam: Present: soft. Absent: distended, tenderness, guarding, rebound, rigid, pulsatile mass - Rectal Rectal exam: Present: deferred - Extremities Exam Extremities exam: Present: normal inspection, full ROM, other (2+ pulses noted in the bilateral upper and lower extremities. There is no palpable cord. negative Homans sign. Muscular compartments are soft. The pelvis is stable.). Absent: pedal edema, calf tenderness - Back Exam Back exam: Present: normal inspection, full ROM. Absent: tenderness, CVA tenderness (R), CVA tenderness (L), paraspinal tenderness, vertebral tenderness - Neurological Exam Neurological exam: Present: alert, other (No facial droop. Tongue midline. Extraocular movements intact bilaterally. Facial sensation intact to light touch in V1, V2, V3 distribution bilaterally. 5 and a 5 strength in 4 extremities. Sensation intact to light touch in 4 extremities.) - Psychiatric Psychiatric exam: Present: anxious - Skin Skin exam: Present: warm, dry, intact, normal color. Absent: rash ED Course Vital Signs 06/16/20 06/16/20 06/16/20 03:48 03:57 03:58 Temperature 97.0 F L 97.0 F L Pulse Rate 100 H 100 H Pulse Rate [ Bilateral] Respiratory 29 H 29 H 29 H Rate Respiratory Rate [Bilateral ] Blood Pressure 143/85 Blood Pressure 143/85 [Right] O2 Sat by Pulse 99 99 99 Oximetry O2 Sat by Pulse Oximetry [ Digit-Finger] 06/16/20 06/16/20 04:04 05:40 Temperature Pulse Rate Pulse Rate [ 77 Bilateral] Respiratory Rate Respiratory 22 Rate [Bilateral ] Blood Pressure Blood Pressure [Right] O2 Sat by Pulse Oximetry O2 Sat by Pulse 99 Oximetry [ Digit-Finger] - Reevaluation(s) Reevaluation #1: 06/16/20 03:54 Differential diagnosis, including but not limited to: COPD exacerbation, pneumonia, bronchitis, COVID-19 Assessment and plan: 65-year-old gentleman with probable COPD exacerbation, requiring CPAP, albuterol, steroids and magnesium, who appears markedly improved when compared to report from EMS. Mild tachycardia at this time is likely secondary to albuterol administration from EMS. Patient has very mild wheezing and rhonchi at this time. This is most likely a COPD exacerbation. Patient denies of any typical Covid symptoms, and he also reports no contact with Covid positive individuals. He denies DVT and pulmonary embolism risk factors. Continue albuterol Atrovent, start fluids, obtain x-ray of the chest, EKG, appropriate laboratory studies, maintain on oxygen, 2 L, and reassess. Reevaluation #2: 06/16/20 05:20 Feeling improved. Tachypnea improved. Patient still completing albuterol, Atrovent inhaler. Anemia appears to be chronic when compared to prior laboratory study evaluations. Patient has had microcytic anemia in the past. Upon completion of albuterol nebulization, patient will be given trial of ambulation with portable pulse ox and supplemental oxygen. If he does not significantly desaturate, we would consider the patient suitable for discharge with outpatient follow-up. 06/16/20 05:40 Anticipate discharge if patient does not significantly desaturate during trial of ambulation. 06/16/20 05:55 Nebulizer therapy complete. Trial of ambulation performed. Patient able to ambulate for approximately 5 minutes without desaturation. Minimally tachyca rdic at this time, we would expect this secondary to albuterol administration. He reports readiness for discharge, and reliability to follow-up as an outpatient. - Pulse Oximetry Interpretation Digit-Finger Initial Pulse Oximetry Readin O2 Sat by Pulse Oximetry: 99 Actions Taken: none ED Medical Decision Making - Lab Data Result diagrams: 06/16/20 03:54 06/16/20 03:54 Vital Signs 06/16/20 06/16/20 06/16/20 03:48 03:56 03:57 Temperature 97.0 F L 97.0 F L Pulse Rate 100 H 100 H Pulse Rate [ Bilateral] Respiratory 29 H 29 H Rate Respiratory Rate [Bilateral ] Blood Pressure 143/85 Blood Pressure 143/85 [Right] O2 Sat by Pulse 99 99 Oximetry O2 Sat by Pulse 99 Oximetry [ Digit-Finger] 06/16/20 06/16/20 03:58 04:04 Temperature Pulse Rate Pulse Rate [ 77 Bilateral] Respiratory 29 H Rate Respiratory 22 Rate [Bilateral ] Blood Pressure Blood Pressure [Right] O2 Sat by Pulse 99 Oximetry O2 Sat by Pulse Oximetry [ Digit-Finger] - EKG Data -: EKG Interpreted by Hi EKG shows normal: sinus rhythm Rate: normal - EKG Data 06/16/20 04:44 Sinus rhythm, 99 bpm. Normal axis, QTC prolonged, 457 ms. Left ventricular hypertrophy. Not a STEMI. Abnormal EKG. - Radiology Data Radiology results: pending, report reviewed, image reviewed X-ray of the chest negative for acute findings. Hyperinflated lungs noted. Critical Care Time: Yes Critical care time in (mins) excluding proc time.: 35 Critical care attestation.: If time is entered above; I have spent that time in minutes in the direct care of this critically ill patient, excluding procedure time. ED Disposition Clinical Impression: COPD exacerbation, Anemia Is pt being admited?: No Does the pt Need Aspirin: No Condition: Good Instructions: Chronic Obstructive Pulmonary Disease, Preventing Iron Deficiency Anemia, Adult, Chronic Obstructive Pulmonary Disease (ED) Additional Instructions: Take the medications as directed and needed. When taking the iron sulfate, this medication may cause constipation, cramping, black tarry stools. Avoid consumption of Motrin, ibuprofen, Naprosyn, Aleve. Continue home oxygen therapy. Please follow-up with the primary care doctor within the next week. Follow-up with the computer security specialist, such as Dr. Edmonds, within the next 2 weeks. Please return to the emergency room right away with new pain, worsening pain, migration of pain, projectile vomiting, change in mental status, confusion, inability to tolerate liquid feeds, new, worsened or different symptoms not present on the initial emergency room evaluation. Prescriptions: Ipratropium [Atrovent NEB] 0.5 mg IH Q4HR #2 ml Ferrous Sulfate [Feosol 325 MG tab] 325 mg PO TID #90 tablet Prednisone [predniSONE 5 mg (6-Day Pack, 21 Tabs)] 5 mg PO .TAPER #1 tab.ds.pk Albuterol Sulfate [Proair Respiclick] 90 mcg IH Q4HR PRN #2 aer.pow.ba PRN Reason: Wheezing ALBUTEROL NEB's [Proventil 0.083% NEBS] 2.5 mg IH TID PRN #90 neb PRN Reason: Wheezing Budesonide/Formoterol Fumarate [Symbicort 160-4.5 Mcg Inhaler] 10.2 gm IH BID #1 hfa.aer.ad Azithromycin [Zithromax TAB] 500 mg PO QDAY #5 tablet Referrals: KALLIE GARCIA MD [Staff Physician] - 3-5 Days CASH EDMONDS MD [Staff Physician] - 3-5 Days
--- NOTE | 2020-06-16 04:17 | XRay Report ---
CHEST 1 VIEW 06/16/2020 3:56 AM INDICATION / CLINICAL INFORMATION: Dyspnea. COPD. COMPARISON: 04/09/20 FINDINGS: SUPPORT DEVICES: None. HEART / MEDIASTINUM: No significant abnormality. LUNGS / PLEURA: No acute air space or interstitial disease. Lungs are hyperinflated with flattening o f the hemidiaphragms, unchanged. No pneumothorax. ADDITIONAL FINDINGS: No significant additional findings. IMPRESSION: 1. Hyperinflated lungs but no acute pulmonary or pleural findings. No change. Signer Name: Quyen Beaulieu MD Signed: 06/16/2020 4:13 AM Workstation Name: [id number]
[2020-06-16 04:52] LABS: Hematocrit 26.6 % (35.5-45.6); Hemoglobin 7.7 gm/dl (11.8-15.2)
[2020-06-16 05:05] LABS: BUN/Creatinine Ratio 14; Blood Urea Nitrogen 13 mg/dL (9-20); Calcium 8.4 mg/dL (8.4-10.2); Hemolysis Index 0
[2020-06-16 06:00] VITALS: BP 137/69
== END 2020-06-16 06:07 | disposition home or self-care (01) ==
LOC: ED 03:42
DX: J44.1 Chronic obstructive pulmonary disease with (acute) exacerbation (principal); D64.9 Anemia, unspecified; I10 Essential (primary) hypertension; F17.200 Nicotine dependence, unspecified, uncomplicated; Z79.2 Long term (current) use of antibiotics; Z79.899 Other long term (current) drug therapy
CPT/HCPCS: 36415; 71045; 80048; 82550; 83735; 85014; 85018; 85049; 85610; 93005; 94644; 99291; J7040

== ENCOUNTER 2020-08-31 15:27 | Emergency (ER) | payer OTHER ==
[2020-08-31] MEDS ORDERED: IPRATROPIUM 0.02% NEBU 2.5 ML IH ONE (15:45)
[2020-08-31] MEDS ORDERED: MAGNESIUM SULFATE 2 GM/50 ML BAG IV ONE (15:45)
[2020-08-31] MEDS ORDERED: ALBUTEROL 2.5 MG/3 ML NEBU IH ONE (15:45)
--- NOTE | 2020-08-31 15:49 | Emergency Department Report ---
ED Shortness of Breath HPI - General Stated Complaint: COPD Time Seen by Provider: 08/31/20 15:38 Source: patient, EMS Limitations: No Limitations - History of Present Illness Initial Comments: 65-year-old male, history of COPD (on 2 L O2), hypertension, anemia, presents to the ED with difficulty breathing. Patient reports onset earlier today. He states no relief with medication at home. Patient denies any cough or fever. EMS was called, patient was given IV Solu-Medrol and albuterol nebulizer tr eatments. Patient remains tachypneic at this time with diffuse wheezing. Patient reports he is fully vaccinated for COVID-19, states he has received both doses. Patient reports tobacco use. PCP: the [place] Complaint: shortness of breath -: This morning Severity: moderate Consistency: constant Improves With: bronchodilators Worsens With: exertion Known History Of: COPD Treatments Prior to Arrival: bronchodilator, other (Solu-Medrol) - Related Data Home Oxygen Therapy: Yes Home Oxygen Amount: 2 Liters Home Medications Medication Instructions Recorded Confirmed Last Taken Amiloride HCl-Hctz 5-50 mg Tab 5 - 50 mg PO ONCE 04/10/20 06/29/20 06/28/20 Hydroxyurea 500 mg PO TID 04/10/20 06/29/20 06/28/20 Sildenafil 100 mg PO PRN 04/10/20 06/29/20 Unknown Previous Rx's Medication Instructions Recorded Last Taken Type Montelukast Sodium 10 mg PO DAILY #30 tablet 04/11/20 Unknown Rx ALBUTEROL NEB's [Proventil 0.083% 2.5 mg IH TID PRN #90 neb 06/16/20 Unknown Rx NEBS] Albuterol Sulfate [Proair 90 mcg IH Q4HR PRN #2 aer.pow.ba 06/16/20 Unknown Rx Respiclick] Budesonide/Formoterol Fumarate 10.2 gm IH BID #1 hfa.aer.ad 06/16/20 Unknown Rx [Symbicort 160-4.5 Mcg Inhaler] Ipratropium [Atrovent NEB] 0.5 mg IH Q4HR 30 Days 06/30/20 Unknown Rx Prednisone [predniSONE 10 mg 10 mg PO .TAPER #1 tab.ds.pk 06/30/20 Unknown Rx (6-Day Pack, 21 Tabs)] amLODIPine 5 mg PO QDAY #30 tablet 06/30/20 Unknown Rx levoFLOXacin [Levaquin TAB] 500 mg PO Q24HR #1 tablet 06/30/20 Unknown Rx Albuterol Sulfate [Proventil Hfa] 2 puff IH Q4HR PRN #1 hfa.aer.ad 08/31/20 Unknown Rx Ferrous Sulfate [Feosol 325 MG tab] 325 mg PO TID #90 tablet 08/31/20 Unknown Rx predniSONE [Deltasone] 50 mg PO QDAY #5 tab 08/31/20 Unknown Rx Allergies Allergy/AdvReac Type Severity Reaction Status Date / Time No Known Allergies Allergy Unverified 04/09/20 18:53 ED Review of Systems ROS: Stated complaint: COPD Other details as noted in HPI Comment: All other systems reviewed and negative Constitutional: denies: chills, fever Respiratory: shortness of breath, wheezing. denies: cough Cardiovascular: denies: chest pain ED Past Medical Hx - Past Medical History Hx Hypertension: Yes Hx COPD: Yes - Social History Smoking Status: Current Every Day Smoker - Medications Home Medications: Home Medications Medication Instructions Recorded Confirmed Last Taken Type Amiloride HCl-Hctz 5-50 mg Tab 5 - 50 mg PO ONCE 04/10/20 06/29/20 06/28/20 History Hydroxyurea 500 mg PO TID 04/10/20 06/29/20 06/28/20 History Sildenafil 100 mg PO PRN 04/10/20 06/29/20 Unknown History Montelukast Sodium 10 mg PO DAILY #30 tablet 04/11/20 06/29/20 Unknown Rx ALBUTEROL NEB's [Proventil 0.083% 2.5 mg IH TID PRN #90 neb 06/16/20 06/29/20 Unknown Rx NEBS] Albuterol Sulfate [Proair 90 mcg IH Q4HR PRN #2 aer.pow.ba 06/16/20 06/29/20 Unknown Rx Respiclick] Budesonide/Formoterol Fumarate 10.2 gm IH BID #1 hfa.aer.ad 06/16/20 06/29/20 Unknown Rx [Symbicort 160-4.5 Mcg Inhaler] Ipratropium [Atrovent NEB] 0.5 mg IH Q4HR 30 Days 06/30/20 Unknown Rx Prednisone [predniSONE 10 mg 10 mg PO .TAPER #1 tab.ds.pk 06/30/20 Unknown Rx (6-Day Pack, 21 Tabs)] amLODIPine 5 mg PO QDAY #30 tablet 06/30/20 Unknown Rx levoFLOXacin [Levaquin TAB] 500 mg PO Q24HR #1 tablet 06/30/20 Unknown Rx Albuterol Sulfate [Proventil Hfa] 2 puff IH Q4HR PRN #1 hfa.aer.ad 08/31/20 Unknown Rx Ferrous Sulfate [Feosol 325 MG tab] 325 mg PO TID #90 tablet 08/31/20 Unknown Rx predniSONE [Deltasone] 50 mg PO QDAY #5 tab 08/31/20 Unknown Rx ED Physical Exam - General General appearance: alert - Head Head exam: Present: atraumatic, normocephalic - Eye Eye exam: Present: normal appearance, EOMI - ENT ENT exam: Present: mucous membranes moist - Neck Neck exam: Present: normal inspection - Respiratory Respiratory exam: Present: respiratory distress, wheezes, other (Tachypneic) - Cardiovascular Cardiovascular Exam: Present: regular rate, normal rhythm - GI/Abdominal GI/Abdominal exam: Present: soft. Absent: distended, tenderness - Extremities Exam Extremities exam: Present: normal inspection - Neurological Exam Neurological exam: Present: alert, oriented X3 - Psychiatric Psychiatric exam: Present: normal affect, normal mood - Skin Skin exam: Present: warm, dry, intact, normal color ED Course Vital Signs 08/31/20 08/31/20 08/31/20 15:35 15:39 16:00 Temperature 98.2 F Pulse Rate 107 H 102 H Pulse Rate [ Anterior Bilateral] Respiratory 27 H 27 H Rate Respiratory Rate [Anterior Bilateral] Blood Pressure 145/77 145/77 O2 Sat by Pulse 96 96 94 Oximetry 08/31/20 08/31/20 08/31/20 16:02 16:30 17:00 Temperature Pulse Rate 96 H 98 H Pulse Rate [ 100 H Anterior Bilateral] Respiratory 25 H 20 Rate Respiratory 27 H Rate [Anterior Bilateral] Blood Pressure 145/77 145/77 O2 Sat by Pulse 100 100 Oximetry 08/31/20 08/31/20 08/31/20 17:13 17:30 17:46 Temperature Pulse Rate 90 92 H 96 H Pulse Rate [ Anterior Bilateral] Respiratory 20 30 H Rate Respiratory Rate [Anterior Bilateral] Blood Pressure 141/58 129/59 O2 Sat by Pulse 100 100 Oximetry 08/31/20 18:16 Temperature Pulse Rate Pulse Rate [ Anterior Bilateral] Respiratory Rate Respiratory Rate [Anterior Bilateral] Blood Pressure 129/59 O2 Sat by Pulse 98 Oximetry - Reevaluation(s) Reevaluation #1: 08/31/20 17:51 Patient feeling much better at this time. Wheezing has resolved. Patient able to ambulate without becoming dyspneic. Patient feels comfortable with discharge home at this time. ED Medical Decision Making - Lab Data Result diagrams: 08/31/20 15:48 08/31/20 15:48 - EKG Data -: EKG Interpreted by Sd EKG shows normal: sinus rhythm, axis, intervals, QRS complexes, ST-T waves Rate: normal - EKG Data Interpretation: no acute changes - Radiology Data Radiology results: report reviewed, image reviewed - Medical Decision Making 65-year-old male presents to ED with COPD exacerbation. Patient initially with coarse wheezing throughout the lung domínguez. He was given albuterol nebs and Solu-Medrol by EMS. Here in the ED, mag sulfate was administered along with additional albuterol/Atrovent nebs. Treatment finished. Wheezing resolved. O2 sats normal. Patient able to ambulate without becoming dyspneic. EKG normal, troponin negative. Chest x-ray is normal. Labs are unremarkable except for hemoglobin of 7.4, which appears to be stable. Patient reports history of anemia. States he stopped taking his iron pills. He feels comfortable with discharge home at this time. Will discharge with prescriptions for albuterol, prednisone, ferrous sulfate. Return precautions given. - Differential Diagnosis COPD, pneumonia, ACS, pulmonary edema Critical care attestation.: If time is entered above; I have spent that time in minutes in the direct care of this critically ill patient, excluding procedure time. ED Disposition Clinical Impression: COPD exacerbation, Anemia Disposition: DC-01 TO HOME OR SELFCARE Is pt being admited?: No Condition: Stable Instructions: Chronic Obstructive Pulmonary Disease Exacerbation, [id number], Chronic Obstructive Pulmonary Disease (ED) Prescriptions: predniSONE [Deltasone] 50 mg PO QDAY #5 tab Ferrous Sulfate [Feosol 325 MG tab] 325 mg PO TID #90 tablet Albuterol Sulfate [Proventil Hfa] 2 puff IH Q4HR PRN #1 hfa.aer.ad PRN Reason: Wheezing Referrals: PRIMARY CARE, [Referring] - 3-[address] [facility] [Provider Group] - 3-5 Days Time of Disposition: 17:50
[2020-08-31 15:59] LABS: Hematocrit 24.5 % (35.5-45.6); Hemoglobin 7.4 gm/dl (11.8-15.2); Mean Corpuscular HGB Conc 30 % (32-34); Platelet Count 859 K/mm3 (140-440)
[2020-08-31 16:01] LABS: Mean Corpuscular Volume 70 fl (84-94); Red Cell Distribution Width 24.2 % (13.2-15.2)
--- NOTE | 2020-08-31 16:33 | XRay Report ---
CHEST 1 VIEW 08/31/2020 4:05 PM INDICATION / CLINICAL INFORMATION: sob. COMPARISON: One view of the chest from 06/29/2020. FINDINGS: SUPPORT DEVICES: None. HEART / MEDIASTINUM: No significant abnormality. LUNGS / PLEURA: Clear lungs. No significant pleural effusion. No pneumothorax. ADDITIONAL FINDINGS: No significant additional findings. IMPRESSION: 1. No acute abnormality of the chest. Signer Name: Zach Villa MD Signed: 08/31/2020 4:28 PM Workstation Name: [id number]
[2020-08-31 16:52] LABS: BUN/Creatinine Ratio 20; Blood Urea Nitrogen 20 mg/dL (9-20); Calcium 8.5 mg/dL (8.4-10.2); Hemolysis Index 0
[2020-08-31 18:42] LABS: Total Cells Counted 100
[2020-08-31 18:46] VITALS: BP 129/59
[2020-08-31 18:57] LABS: Band Neutrophils # (Manual) 0.1 K/mm3
[2020-08-31 18:58] LABS: Anisocytosis 2+; Hypochromasia 2+
[2020-08-31 18:59] LABS: Ovalocytes Rare; Target Cells Rare; Tear Drop Cells Rare
[2020-08-31 19:00] LABS: Platelet Estimate Consistent w Auto
== END 2020-08-31 18:30 | disposition home or self-care (01) ==
LOC: ED 15:27
DX: J44.1 Chronic obstructive pulmonary disease with (acute) exacerbation (principal); D64.9 Anemia, unspecified; I10 Essential (primary) hypertension; F17.200 Nicotine dependence, unspecified, uncomplicated; Z79.899 Other long term (current) drug therapy
CPT/HCPCS: 36415; 71045; 80048; 84484; 85007; 85025; 94644; 96365; 99284; J3475

== ENCOUNTER 2021-03-20 05:03 | Observation (INO) | payer OTHER ==
[2021-03-20] MEDS ORDERED: MORPHINE 4 MG/1 ML INJ IV ONE (06:20)
[2021-03-20] MEDS ORDERED: methylPREDNISolone Sod Succinate 125 MG/2 ML INJ IV ONE (06:20)
[2021-03-20] MEDS ORDERED: ONDANSETRON 4 MG/2 ML INJ IV ONE (06:20)
--- NOTE | 2021-03-20 06:42 | Emergency Department Report ---
ED Shortness of Breath HPI - General Chief Complaint: Dyspnea/Respdistress Stated Complaint: CHEST PAIN Time Seen by Provider: 03/20/21 06:06 Source: EMS Mode of arrival: Stretcher Limitations: Physical Limitation - History of Present Illness Initial Comments: 65-year-old male with a past medical history of COPD, hypertension, and looking presents to the hospital complaints of shortness of breath since evening. Patient chronically takes 2 to 3 L of home oxygen and states he has been placed on hospice given 6 months life expectancy secondary to lung issues. Patient did not try nebulizer prior to ED arrival. EMS reports saturation 90% on 3 L. Jd lagunas provided albuterol 2.5 mg and placed on nonrebreather with improvement. Patient reports that his breathing status has improved but he complains of a toothache type of right sided lower chest pain. Pain is worse with movement and deep inspiration. Denies history of PE/DVT, cough, or fever. He continues to smoke cigarettes - Related Data Previous Rx's Medication Instructions Recorded Last Taken Type Albuterol Sulfate [Proair 90 mcg IH Q4HR PRN #2 aer.pow.ba 06/16/20 Unknown Rx Respiclick] amLODIPine 5 mg PO QDAY #30 tablet 06/30/20 08/31/20 Rx Ferrous Sulfate [Feosol 325 MG tab] 325 mg PO TID #90 tablet 08/31/20 08/31/20 Rx Albuterol Sulfate [Proventil Hfa] 2 puff IH Q4HR PRN #1 hfa.aer.ad 09/04/20 Unknown Rx Amiloride HCl-Hctz 5-50 mg Tab 5 - 50 mg PO ONCE #30 09/04/20 Unknown Rx Hydroxyurea 500 mg PO TID #90 09/04/20 Unknown Rx Ipratropium [Atrovent NEB] 0.5 mg IH Q4HR 30 Days #50 09/04/20 Unknown Rx Montelukast [Singulair] 10 mg PO QPM #30 tablet 09/04/20 Unknown Rx Prednisone [predniSONE 10 mg 10 mg PO .TAPER 6 Days #1 tab.ds.pk 09/04/20 Unknown Rx (6-Day Pack, 21 Tabs)] Allergies Allergy/AdvReac Type Severity Reaction Status Date / Time No Known Allergies Allergy Verified 09/01/20 09:48 ED Review of Systems ROS: Stated complaint: CHEST PAIN Other details as noted in HPI Comment: All other systems reviewed and negative ED Past Medical Hx - Past Medical History Hx Hypertension: Yes Hx COPD: Yes Additional medical history: Leukemia - Surgical History Past Surgical History?: No - Social History Smoking Status: Former Smoker Substance Use Type: None - Medications Home Medications: Home Medications Medication Instructions Recorded Confirmed Last Taken Type Albuterol Sulfate [Proair 90 mcg IH Q4HR PRN #2 aer.pow.ba 06/16/20 09/01/20 Unknown Rx Respiclick] amLODIPine 5 mg PO QDAY #30 tablet 06/30/20 09/01/20 08/31/20 Rx Ferrous Sulfate [Feosol 325 MG tab] 325 mg PO TID #90 tablet 08/31/20 09/01/20 08/31/20 Rx Albuterol Sulfate [Proventil Hfa] 2 puff IH Q4HR PRN #1 hfa.aer.ad 09/04/20 Unknown Rx Amiloride HCl-Hctz 5-50 mg Tab 5 - 50 mg PO ONCE #30 09/04/20 Unknown Rx Hydroxyurea 500 mg PO TID #90 09/04/20 Unknown Rx Ipratropium [Atrovent NEB] 0.5 mg IH Q4HR 30 Days #50 09/04/20 Unknown Rx Montelukast [Singulair] 10 mg PO QPM #30 tablet 09/04/20 Unknown Rx Prednisone [predniSONE 10 mg 10 mg PO .TAPER 6 Days #1 tab.ds.pk 09/04/20 Unknown Rx (6-Day Pack, 21 Tabs)] ED Physical Exam - General Limitations: Physical Limitation - Other Other exam information: General: No acute distress Head: Atraumatic Eyes: normal appearance ENT: Moist mucous membranes Neck: Normal appearance, no midline tenderness Chest: Clear to auscultation bilaterally, chest wall nontender CV: Regular rate and rhythm Abdomen: Soft, normal bowel sounds, nontender, nondistended, no rebound or guarding Back: Normal inspection Extremity: Normal inspection, full range of motion, no calf tenderness or leg edema Neuro: Alert O x 3, no facial asymmetry, speech clear, no gross motor sensory d eficit Psych: Appropriate behavior Skin: No rash ED Course Vital Signs 03/20/21 03/20/21 03/20/21 05:15 05:30 05:45 Temperature 97.8 F Pulse Rate 103 H 103 H 105 H Pulse Rate [ Bilateral Throughout] Respiratory 21 30 H Rate Respiratory Rate [Bilateral Throughout] Blood Pressure 148/70 158/78 Blood Pressure 148/70 [Left] O2 Sat by Pulse 100 100 100 Oximetry 03/20/21 03/20/21 03/20/21 06:00 06:15 06:30 Temperature Pulse Rate 92 H 101 H Pulse Rate [ Bilateral Throughout] Respiratory 22 24 Rate Respiratory Rate [Bilateral Throughout] Blood Pressure 139/66 131/65 160/89 Blood Pressure [Left] O2 Sat by Pulse 91 100 100 Oximetry 03/20/21 03/20/21 03/20/21 06:44 06:45 07:00 Temperature Pulse Rate Pulse Rate [ Bilateral Throughout] Respiratory 18 Rate Respiratory Rate [Bilateral Throughout] Blood Pressure 163/81 140/73 Blood Pressure [Left] O2 Sat by Pulse 96 97 Oximetry 03/20/21 03/20/21 07:15 08:52 Temperature Pulse Rate Pulse Rate [ 103 H Bilateral Throughout] Respiratory Rate Respiratory 24 Rate [Bilateral Throughout] Blood Pressure 146/78 Blood Pressure [Left] O2 Sat by Pulse 95 Oximetry - Reevaluation(s) Reevaluation #1: 03/20/21 6:15 AM Nurse instructed to switch nonrebreather to 3 L oxygen nasal - ABG Interpretation Ph: 7.22 PCO2: 101 PO2: 88 Bicarbonate: 40 Interpretation: respiratory acidosis ED Medical Decision Making - Lab Data Result diagrams: 03/20/21 06:40 03/20/21 06:40 Lab Results 03/20/21 03/20/21 03/20/21 Range/Units 06:40 06:40 06:40 WBC 8.3 (4.5-11.0) K/mm3 RBC 4.01 (3.65-5.03) M/mm3 Hgb 7.4 L (11.8-15.2) gm/dl Hct 27.1 L (35.5-45.6) % MCV 68 L (84-94) fl MCH 19 L (28-32) pg MCHC 27 L (32-34) % RDW 24.3 H (13.2-15.2) % Plt Count 388 (140-440) K/mm3 D-Dimer 163.13 (0-234) ng/mlDDU ABG pH (7.350-7.450) pH Units ABG pCO2 mm Hg ABG pO2 (80.0-90.0) mm Hg ABG HCO3 (20.0-26.0) mmol/L ABG O2 Saturation (95.0-99.0) % ABG O2 Content (0.0-44) ABG Base Excess (-2.0-3.0) mmol/L ABG Hemoglobin (14.0-18.0) gm/dl ABG Carboxyhemoglobin (0.0-5.0) % ABG Methemoglobin (0.0-1.5) % Oxyhemoglobin (95.0-99.0) % FiO2 % Sodium 144 (137-145) mmol/L Potassium 4.4 (3.6-5.0) mmol/L Chloride 99.6 (98-107) mmol/L Carbon Dioxide 35 H (22-30) mmol/L Anion Gap 14 mmol/L BUN 16 (9-20) mg/dL Creatinine 0.9 (0.8-1.3) mg/dL Estimated GFR > 60 ml/min BUN/Creatinine Ratio 18 % Glucose 137 H (75-100) mg/dL Calcium 8.6 (8.4-10.2) mg/dL 03/20/21 Range/Units 08:40 WBC (4.5-11.0) K/mm3 RBC (3.65-5.03) M/mm3 Hgb (11.8-15.2) gm/dl Hct (35.5-45.6) % MCV (84-94) fl MCH (28-32) pg MCHC (32-34) % RDW (13.2-15.2) % Plt Count (140-440) K/mm3 D-Dimer (0-234) ng/mlDDU ABG pH 7.222 L (7.350-7.450) pH Units ABG pCO2 101.7 mm Hg ABG pO2 88.5 (80.0-90.0) mm Hg ABG HCO3 40.9 H (20.0-26.0) mmol/L ABG O2 Saturation 96.6 (95.0-99.0) % ABG O2 Content 9.1 (0.0-44) ABG Base Excess 11.7 H (-2.0-3.0) mmol/L ABG Hemoglobin 6.8 L (14.0-18.0) gm/dl ABG Carboxyhemoglobin 2.9 (0.0-5.0) % ABG Methemoglobin 0.6 (0.0-1.5) % Oxyhemoglobin 93.2 L (95.0-99.0) % FiO2 21 % Sodium (137-145) mmol/L Potassium (3.6-5.0) mmol/L Chloride (98-107) mmol/L Carbon Dioxide (22-30) mmol/L Anion Gap mmol/L BUN (9-20) mg/dL Creatinine (0.8-1.3) mg/dL Estimated GFR ml/min BUN/Creatinine Ratio % Glucose (75-100) mg/dL Calcium (8.4-10.2) mg/dL - EKG Data -: EKG Interpreted by Me EKG shows normal: sinus rhythm, intervals (QTC 435), QRS complexes (QRS duration 80), ST-T waves (No STEMI) Rate: tachycardia (105) - EKG Data When compared to previous EKG there are: no significant change - Radiology Data Radiology results: report reviewed - Medical Decision Making 65-year-old male with history of end-stage COPD currently on hospice care p resents to the hospital with shortness of breath worsening this a.m. ABG reveals significant elevation of CO2 with respiratory acidosis. Patient is mentating well. BiPAP ordered for respiratory failure. Additional nebs provided. Steroids provided. Chest x-ray without acute findings. Patient n oted to have anemia which is chronic compared to previous. No acute EKG findings. Patient complains of right-sided chest pain with a negative D-dimer therefore low suspicion for PE given low pretest probability. He has an unremarkable x-ray. Treated with morphine and Zofran for pain. Hospitalist to admit. Critical Care Time: Yes Critical care time in (mins) excluding proc time.: 35 Critical care attestation.: If time is entered above; I have spent that time in minutes in the direct care of this critically ill patient, excluding procedure time. ED Disposition Clinical Impression: COPD exacerbation, Acute respiratory acidosis, Acute respiratory failure, O2 dependent, Anemia, Tobacco abuse Disposition: 09 ADMITTED INPATIENT Is pt being admited?: Yes Condition: Stable Instructions: Chronic Obstructive Pulmonary Disease (ED) Time of Disposition: 09:05 (Dr Clark/hospitalist)
--- NOTE | 2021-03-20 06:45 | XRay Report ---
CHEST 1 VIEW 03/20/2021 6:28 AM INDICATION / CLINICAL INFORMATION: copd. COMPARISON: 09/01/2020. FINDINGS: SUPPORT DEVICES: None. HEART / MEDIASTINUM: No significant abnormality. LUNGS / PLEURA: No significant pulmonary or pleural abnormality. No pneumothorax. ADDITIONAL FINDINGS: No significant additional findings. IMPRESSION: No acute abnormality. Signer Name: Will Sandoval MD Signed: 03/20/2021 6:41 AM Workstation Name: [id number]
[2021-03-20 07:29] LABS: Mean Corpuscular HGB Conc 27 % (32-34); Platelet Count 388 K/mm3 (140-440); Red Blood Count 4.01 M/mm3 (3.65-5.03)
[2021-03-20 07:34] LABS: Hematocrit 27.1 % (35.5-45.6); Hemoglobin 7.4 gm/dl (11.8-15.2); Mean Corpuscular Volume 68 fl (84-94); Red Cell Distribution Width 24.3 % (13.2-15.2)
[2021-03-20 07:54] LABS: BUN/Creatinine Ratio 18; Blood Urea Nitrogen 16 mg/dL (9-20); Calcium 8.6 mg/dL (8.4-10.2); Hemolysis Index 0
[2021-03-20] MEDS ORDERED: IPRATROPIUM/ALBUTEROL SULFATE 3 ML AMPUL.NEB IH ONE ×2 (08:11→09:02)
[2021-03-20 08:51] LABS: ABG Base Excess 11.7 mmol/L (-2.0-3.0); ABG HCO3 40.9 mmol/L (20.0-26.0); ABG Methemoglobin 0.6 % (0.0-1.5); ABG Oxygen Saturation 96.6 % (95.0-99.0); ABG PCO2 101.7 mm Hg; ABG PH 7.222 pH Units (7.350-7.450); ABG PO2 88.5 mm Hg (80.0-90.0)
[2021-03-20] MEDS ORDERED: ACETAMINOPHEN 325 MG TAB PO PRN (11:24)
[2021-03-20] MEDS ORDERED: oxyCODONE /ACETAMINOPHEN 5-325MG TAB PO PRN (11:24)
[2021-03-20] MEDS ORDERED: ALBUTEROL 2.5 MG/3 ML NEBU IH PRN (11:24)
[2021-03-20] MEDS ORDERED: ONDANSETRON 4 MG/2 ML INJ IV PRN (11:24)
[2021-03-20] MEDS ORDERED: HYDROmorphone 1 MG/1 ML INJ IV PRN (11:24)
[2021-03-20] MEDS ORDERED: NON-FORMULARY EACH (Albuterol Sulfate [Proair Respiclick] 90 MCG Aer.Pow.Ba) IH PRN (11:27)
[2021-03-20] MEDS ORDERED: [UNRECOGNIZED DRUG - OTHER] PO SCH (11:30)
--- NOTE | 2021-03-20 11:34 | History and Physical Report ---
History of Present Illness Date of examination: 03/20/21 Date of admission: 03/20/21 09:06 Chief complaint: Dyspnea Respiratory distress History of present illness: 65-year-old male with a past medical history of COPD, hypertension, and looking presents to the hospital complaints of shortness of breath since evening. Patient chronically takes 2 to 3 L of home oxygen and states he has been placed on hospice given 6 months life expectancy secondary to lung issues. Patient did not try nebulizer prior to ED arrival. EMS reports saturation 90% on 3 L. Patient provided albuterol 2.5 mg and placed on nonrebreather with improvement. Patient reports that his breathing status has improved but he complains of a toothache type of right sided lower chest pain. Pain is worse with movement and deep inspiration. Denies history of PE/DVT, cough, or fever. He continues to smoke cigarettes In the emergency room patient is found to have acute respiratory failure. Patient ABG showed pH 7.222, PCO2 one 1.7 PO2 88.5 bicarb 40.9 and O2 sat 96.6. Subsequently patient was put on BiPAP. We are going to put the patient on IMC overnight. Will consult pulmonary to see the patient Med rec is done Past History Past Medical History: COPD, hypertension, other (Leukemia) Medications and Allergies Allergies Allergy/AdvReac Type Severity Reaction Status Date / Time No Known Allergies Allergy Verified 09/01/20 09:48 Home Medications Medication Instructions Recorded Confirmed Last Taken Type Albuterol Sulfate [Proair 90 mcg IH Q4HR PRN #2 aer.pow.ba 06/16/20 09/01/20 Unknown Rx Respiclick] amLODIPine 5 mg PO QDAY #30 tablet 06/30/20 09/01/20 08/31/20 Rx Ferrous Sulfate [Feosol 325 MG tab] 325 mg PO TID #90 tablet 08/31/20 09/01/20 08/31/20 Rx Albuterol Sulfate [Proventil Hfa] 2 puff IH Q4HR PRN #1 hfa.aer.ad 09/04/20 Un known Rx Amiloride HCl-Hctz 5-50 mg Tab 5 - 50 mg PO ONCE #30 09/04/20 Unknown Rx Hydroxyurea 500 mg PO TID #90 09/04/20 Unknown Rx Ipratropium [Atrovent NEB] 0.5 mg IH Q4HR 30 Days #50 09/04/20 Unknown Rx Montelukast [Singulair] 10 mg PO QPM #30 tablet 09/04/20 Unknown Rx Prednisone [predniSONE 10 mg 10 mg PO .TAPER 6 Days #1 tab.ds.pk 09/04/20 Unknown Rx (6-Day Pack, 21 Tabs)] Review of Systems Constitutional: lethargy Cardiovascular: chest pain, shortness of breath, dyspnea on exertion Respiratory: shortness of breath, dyspnea on exertion Exam - Constitutional Vitals: Temp Pulse Resp BP Pulse Ox 97.8 F 107 H 17 152/83 99 03/20/21 05:15 03/20/21 10:15 03/20/21 10:15 03/20/21 10:15 03/20/21 10:15 General appearance: Present: mild distress, well-nourished - EENT Eyes: Present: PERRL ENT: hearing intact, clear oral mucosa - Neck Neck: Present: supple, normal ROM - Respiratory Respiratory effort: normal Respiratory: bilateral: diminished - Cardiovascular Heart Sounds: Present: S1 & S2. Absent: rub, click - Extremities Extremities: pulses symmetrical, No edema Peripheral Pulses: within normal limits - Abdominal General gastrointestinal: Present: soft, non-tender, non-distended, normal bowel sounds Male genitourinary: Present: normal - Integumentary Integumentary: Present: clear, warm, dry - Musculoskeletal Musculoskeletal: gait normal, strength equal bilaterally - Psychiatric Psychiatric: other (Patient is lethargic) - Neurologic Neurologic: CNII-XII intact, moves all extremities, other (Patient is lethargic) Results - Labs CBC & Chem 7: 03/20/21 06:40 03/20/21 06:40 Labs: Laboratory Last Values WBC 8.3 K/mm3 (4.5-11.0) 03/20/21 06:40 RBC 4.01 M/mm3 (3.65-5.03) 03/20/21 06:40 Hgb 7.4 gm/dl (11.8-15.2) L 03/20/21 06:40 Hct 27.1 % (35.5-45.6) L 03/20/21 06:40 MCV 68 fl (84-94) L 03/20/21 06:40 MCH 19 pg (28-32) L 03/20/21 06:40 MCHC 27 % (32-34) L 03/20/21 06:40 RDW 24.3 % (13.2-15.2) H 03/20/21 06:40 Plt Count 388 K/mm3 (140-440) 03/20/21 06:40 D-Dimer 163.13 ng/mlDDU (0-234) 03/20/21 06:40 ABG pH 7.222 pH Units (7.350-7.450) L 03/20/21 08:40 ABG pCO2 101.7 mm Hg 03/20/21 08:40 ABG pO2 88.5 mm Hg (80.0-90.0) 03/20/21 08:40 ABG HCO3 40.9 mmol/L (20.0-26.0) H 03/20/21 08:40 ABG O2 Saturation 96.6 % (95.0-99.0) 03/20/21 08:40 ABG O2 Content 9.1 (0.0-44) 03/20/21 08:40 ABG Base Excess 11.7 mmol/L (-2.0-3.0) H 03/20/21 08:40 ABG Hemoglobin 6.8 gm/dl (14.0-18.0) L 03/20/21 08:40 ABG Carboxyhemoglobin 2.9 % (0.0-5.0) 03/20/21 08:40 ABG Methemoglobin 0.6 % (0.0-1.5) 03/20/21 08:40 Oxyhemoglobin 93.2 % (95.0-99.0) L 03/20/21 08:40 FiO2 21 % 03/20/21 08:40 Sodium 144 mmol/L (137-145) 03/20/21 06:40 Potassium 4.4 mmol/L (3.6-5.0) 03/20/21 06:40 Chloride 99.6 mmol/L (98-107) 03/20/21 06:40 Carbon Dioxide 35 mmol/L (22-30) H 03/20/21 06:40 Anion Gap 14 mmol/L 03/20/21 06:40 BUN 16 mg/dL (9-20) 03/20/21 06:40 Creatinine 0.9 mg/dL (0.8-1.3) 03/20/21 06:40 Estimated GFR > 60 ml/min 03/20/21 06:40 BUN/Creatinine Ratio 18 % 03/20/21 06:40 Glucose 137 mg/dL (75-100) H 03/20/21 06:40 Calcium 8.6 mg/dL (8.4-10.2) 03/20/21 06:40 - Imaging and Cardiology Chest x-ray: report reviewed Assessment and Plan VTE prophylaxis?: Chemical Plan of care discussed with patient/family: Yes - Patient Problems (1) Acute hypoxemic respiratory failure Current Visit: No Status: Acute Plan to address problem: Admit the patient to the [facility] overnight. Patient is on BiPAP. DuoNeb by nebulizer every 4 hours. Albuterol via nebulizer every 4 hours as needed. Solu-Medrol 40 mg IV daily 6 hours. Zithromax to 50 mg p.o. daily. Singular 10 mg p.o. daily. Pulmonary consult (2) COPD exacerbation Current Visit: Yes Status: Acute Plan to address problem: BiPAP. DuoNeb by nebulizer every 4 hours. Albuterol via nebulizer every 4 hours as needed. Solu-Medrol 40 mg IV daily 6 hours. Zithromax to 50 mg p.o. daily. Singular 10 mg p.o. daily. Pulmonary consult (3) Tobacco abuse Current Visit: Yes Status: Acute Plan to address problem: We counseled regarding quit smoking. We provide the patient with nicotine patch (4) Hypertension Current Visit: No Status: Acute Plan to address problem: Amlodipine 5 mg p.o. daily. Amiloride/hydrochlorothiazide 5/50 mg p.o. daily. We will continue the home medication. (5) DVT prophylaxis Current Visit: No Status: Acute Plan to address problem: Heparin 5000 units subcu every 8 hours for DVT prophylaxis. Pepcid 20 mg p.o. twice daily for GI prophylaxis. (6) Full code status Current Visit: No Status: Acute Plan to address problem: Patient is a full code
[2021-03-20] MEDS: methylPREDNISolone Sod Succinate 40 MG/1 ML INJ IV SCH ×2 (12:39→17:47)
[2021-03-20 13:54] LABS: Anisocytosis 2+; Hypochromasia 2+; Ovalocytes 1+; Tear Drop Cells 1+; Total Cells Counted 100
[2021-03-20 13:55] LABS: Platelet Estimate Consistent w Auto
[2021-03-20] MEDS: FERROUS SULFATE 325 MG TAB PO SCH (15:45)
[2021-03-20] MEDS: HEPARIN 5,000 UNIT/1 ML VIAL SUB-Q SCH (15:45)
[2021-03-20] MEDS: HYDROXYUREA 500 MG CAP PO SCH (17:47)
[2021-03-20] MEDS ORDERED: MONTELUKAST 10 MG TAB PO SCH (18:00)
--- NOTE | 2021-03-20 21:34 | Consultation ---
History of Present Illness Consult date: 03/20/21 Requesting physician: ADONAY CONRAD Reason for consult: dyspnea History of present illness: 65 yo who is a very poor historian, admitted with increased SOB, wheezing, cough, and respiratory failure. Denies fevers, chills, chest pain, hemoptysis. States he has been on hospice via [facility]. Active Medications Acetaminophen (Acetaminophen 325 Mg Tab) 650 mg PO Q4H PRN PRN Reason: Pain MILD(1-3)/Fever >100.5/HERMAN Albuterol (Albuterol 2.5 Mg/3 Ml Nebu) 2.5 mg IH Q4HRT PRN PRN Reason: Shortness Of Breath Albuterol/Ipratropium (Ipratropium/Albuterol Sulfate 3 Ml Ampul.Neb) 1 ampul IH Q6HRT [facility] Amlodipine Besylate (Amlodipine 5 Mg Tab) 5 mg PO QDAY [facility] Azithromycin (Azithromycin 250 Mg Tab) 250 mg PO QDAY [facility]LE; Protocol Budesonide (Budesonide 0.5 Mg/2 Ml Nebu) 0.5 mg IH Q12HRT [facility] Docusate Sodium (Docusate Sodium 100 Mg Cap) 100 mg PO BID [facility] Famotidine (Famotidine 20 Mg Tab) 20 mg PO BID [facility] Ferrous Sulfate (Ferrous Sulfate 325 Mg Tab) 325 mg PO TID [facility] Last Admin: 03/20/21 15:45 Dose: 325 mg Documented by: Heparin Sodium (Porcine) (Heparin 5,000 Unit/1 Ml Vial) 5,000 unit SUB-Q Q8HR [facility] Last Admin: 03/20/21 15:45 Dose: 5,000 unit Documented by: Hydromorphone HCl (Hydromorphone 1 Mg/1 Ml Inj) 0.5 mg IV Q3H PRN PRN Reason: Pain , Severe (7-10) Hydroxyurea (Hydroxyurea 500 Mg Cap) 500 mg PO TID [facility] Last Admin: 03/20/21 17:47 Dose: 500 mg Documented by: Methylprednisolone Sodium Succinate (Methylprednisolone Sod Succinate 40 Mg/1 Ml Inj) 60 mg IV Q6HR [facility] Miscellaneous Medication (Amiloride Hcl-Hctz 5-50 Mg Tab) 5 - 50 mg PO ONCE [facility]LE Montelukast Sodium (Montelukast 10 Mg Tab) 10 mg PO QPM [facility] Last Admin: 03/20/21 18:50 Dose: 10 mg Documented by: Ondansetron HCl (Ondansetron 4 Mg/2 Ml Inj) 4 mg IV Q8H PRN PRN Reason: Nausea And Vomiting Oxycodone/Acetaminophen (Oxycodone /Acetaminophen 5-325mg Tab) 1 tab PO Q6H PRN PRN Reason: Pain, Moderate (4-6) Sodium Chloride (Sodium Chloride 0.9% 10 Ml Flush Syringe) 10 ml IV BID CHERELLE Sodium Chloride (Sodium Chloride 0.9% 10 Ml Flush Syringe) 10 ml IV PRN PRN PRN Reason: LINE FLUSH Past History Past Medical History: COPD, hypertension, other (Leukemia) Social history: smoking. denies: alcohol abuse, prescription drug abuse, IV drug use Family history: other (No pulm issues reported) Medications and Allergies Allergies Allergy/AdvReac Type Severity Reaction Status Date / Time No Known Allergies Allergy Verified 09/01/20 09:48 Home Medications Medication Instructions Recorded Confirmed Last Taken Type Albuterol Sulfate [Proair 90 mcg IH Q4HR PRN #2 aer.[email or web address].ba 06/16/20 09/01/20 Unknown Rx Respiclick] amLODIPine 5 mg PO QDAY #30 tablet 06/30/20 09/01/20 08/31/20 Rx Ferrous Sulfate [Feosol 325 MG tab] 325 mg PO TID #90 tablet 08/31/20 09/01/20 08/31/20 Rx Albuterol Sulfate [Proventil Hfa] 2 puff IH Q4HR PRN #1 hfa.aer.ad 09/04/20 Unknown Rx Amiloride HCl-Hctz 5-50 mg Tab 5 - 50 mg PO ONCE #30 09/04/20 Unknown Rx Hydroxyurea 500 mg PO TID #90 09/04/20 Unknown Rx Ipratropium [Atrovent NEB] 0.5 mg IH Q4HR 30 Days #50 09/04/20 Unknown Rx Montelukast [Singulair] 10 mg PO QPM #30 tablet 09/04/20 Unknown Rx Prednisone [predniSONE 10 mg 10 mg PO .TAPER 6 Days #1 tab.ds.pk 09/04/20 Unknown Rx (6-Day Pack, 21 Tabs)] Active Meds: Active Medications Acetaminophen (Acetaminophen 325 Mg Tab) 650 mg PO Q4H PRN PRN Reason: Pain MILD(1-3)/Fever >100.5/HERMAN Albuterol (Albuterol 2.5 Mg/3 Ml Nebu) 2.5 mg IH Q4HRT PRN PRN Reason: Shortness Of Breath Albuterol/Ipratropium (Ipratropium/Albuterol Sulfate 3 Ml Ampul.Neb) 1 ampul IH Q6HRT [facility] Amlodipine Besylate (Amlodipine 5 Mg Tab) 5 mg PO QDAY [facility] Azithromycin (Azithromycin 250 Mg Tab) 250 mg PO QDAY [facility]; Protocol Budesonide (Budesonide 0.5 Mg/2 Ml Nebu) 0.5 mg IH Q12HRT [facility] Docusate Sodium (Docusate Sodium 100 Mg Cap) 100 mg PO BID [facility] Famotidine (Famotidine 20 Mg Tab) 20 mg PO BID [facility] Ferrous Sulfate (Ferrous Sulfate 325 Mg Tab) 325 mg PO TID [facility] Last Admin: 03/20/21 15:45 Dose: 325 mg Documented by: Heparin Sodium (Porcine) (Heparin 5,000 Unit/1 Ml Vial) 5,000 unit SUB-Q Q8HR [facility] Last Admin: 03/20/21 15:45 Dose: 5,000 unit Documented by: Hydromorphone HCl (Hydromorphone 1 Mg/1 Ml Inj) 0.5 mg IV Q3H PRN PRN Reason: Pain , Severe (7-10) Hydroxyurea (Hydroxyurea 500 Mg Cap) 500 mg PO TID [facility] Last Admin: 03/20/21 17:47 Dose: 500 mg Documented by: Methylprednisolone Sodium Succinate (Methylprednisolone Sod Succinate 40 Mg/1 Ml Inj) 60 mg IV Q6HR [facility] Miscellaneous Medication (Amiloride Hcl-Hctz 5-50 Mg Tab) 5 - 50 mg PO ONCE [facility] Montelukast Sodium (Montelukast 10 Mg Tab) 10 mg PO QPM [facility] Last Admin: 03/20/21 18:50 Dose: 10 mg Documented by: Ondansetron HCl (Ondansetron 4 Mg/2 Ml Inj) 4 mg IV Q8H PRN PRN Reason: Nausea And Vomiting Oxycodone/Acetaminophen (Oxycodone /Acetaminophen 5-325mg Tab) 1 tab PO Q6H PRN PRN Reason: Pain, Moderate (4-6) Sodium Chloride (Sodium Chloride 0.9% 10 Ml Flush Syringe) 10 ml IV BID [facility]ERELLE Sodium Chloride (Sodium Chloride 0.9% 10 Ml Flush Syringe) 10 ml IV PRN PRN PRN Reason: LINE FLUSH Review of Systems All systems: negative Physical Examination Vital signs: Vital Signs Temp Pulse Resp BP Pulse Ox 97.8 F 103 H 21 148/70 100 03/20/21 05:15 03/20/21 05:15 03/20/21 05:15 03/20/21 05:15 03/20/21 05:15 General appearance: no acute distress, alert Eyes: non-icteric Neck: supple Effort: normal Ascultation: Bilateral: wheezes Cardiovascular: regular rate and rhythm (no mrg) Gastrointestinal: normoactive bowel sounds, soft, non-tender, non-distended Integumentary: normal Extremities: no cyanosis, no edema Musculoskeletal: no deformities normal mental status, non-focal exam, pupils equal and round mood appropriate, affect normal Results - Laboratory Findings CBC and BMP: 03/20/21 06:40 03/20/21 06:40 ABG ABG pH 7.222 pH Units (7.350-7.450) L 03/20/21 08:40 ABG pCO2 101.7 mm Hg 03/20/21 08:40 ABG pO2 88.5 mm Hg (80.0-90.0) 03/20/21 08:40 ABG O2 Saturation 96.6 % (95.0-99.0) 03/20/21 08:40 PT/INR, D-dimer D-Dimer 163.13 ng/mlDDU (0-234) 03/20/21 06:40 Abnormal lab findings: Abnormal Labs 03/20/21 03/20/21 03/20/21 06:40 06:40 08:40 Hgb 7.4 L Hct 27.1 L MCV 68 L MCH 19 L MCHC 27 L RDW 24.3 H Seg Neuts % (Manual) 91.0 H Lymphocytes % (Manual) 7.0 L Nucleated RBC % 1.0 H Lymphocytes # (Manual) 0.6 L ABG pH 7.222 L ABG HCO3 40.9 H ABG Base Excess 11.7 H ABG Hemoglobin 6.8 L Oxyhemoglobin 93.2 L Carbon Dioxide 35 H Glucose 137 H - Diagnostic Findings Chest x-ray: report reviewed, image reviewed Assessment and Plan Imp: 1. End-stage COPD with acute exac. 2. Centrilobular emphysema 3. A/C respiratory failure, hypoxia/hypercapnea 4. Nicotine dependence, cigarettes 5. Microcytic anemia Rec: 1. Solumedrol 60mg IV [id number] 2. Duonebs QID 3. Zithromax 4. DVT PPx 5. D/c smoking 6. BIPAP QHS and prn 7. Consider iron supplementation; anemia likely playing a role in dyspnea Plan of care reviewed w/ patient, he understands/agrees Thanks for the consult.
[2021-03-21 06:16] LABS: Hematocrit 20.1 % (35.5-45.6); Hemoglobin 6.1 gm/dl (11.8-15.2); Mean Corpuscular HGB Conc 30 % (32-34); Platelet Count 311 K/mm3 (140-440); Red Blood Count 3.04 M/mm3 (3.65-5.03)
[2021-03-21 06:19] LABS: Mean Corpuscular Volume 66 fl (84-94); Red Cell Distribution Width 23.6 % (13.2-15.2)
[2021-03-21 07:48] LABS: BUN/Creatinine Ratio 24; Blood Urea Nitrogen 19 mg/dL (9-20); Calcium 8.4 mg/dL (8.4-10.2); Hemolysis Index 2
[2021-03-21] MEDS: IPRATROPIUM/ALBUTEROL SULFATE 3 ML AMPUL.NEB IH SCH ×2 (09:02→10:31)
[2021-03-21] MEDS: FERROUS SULFATE 325 MG TAB PO SCH ×3 (09:02→16:23)
[2021-03-21] MEDS: IPRATROPIUM 0.02% NEBU 2.5 ML IH SCH (09:03)
[2021-03-21] MEDS: HYDROXYUREA 500 MG CAP PO SCH ×4 (09:04→16:23)
[2021-03-21] MEDS: BUDESONIDE 0.5 MG/2 ML NEBU IH SCH ×2 (09:04→10:31)
[2021-03-21] MEDS: DOCUSATE SODIUM 100 MG CAP PO SCH ×2 (09:04→09:35)
[2021-03-21] MEDS: FAMOTIDINE 20 MG TAB PO SCH ×2 (09:04→09:36)
[2021-03-21] MEDS: HEPARIN 5,000 UNIT/1 ML VIAL SUB-Q SCH ×3 (09:04→16:23)
[2021-03-21] MEDS: methylPREDNISolone Sod Succinate 40 MG/1 ML INJ IV SCH ×3 (09:28→12:37)
--- NOTE | 2021-03-21 09:29 | Discharge Summary ---
Providers - Providers Date of Admission: 03/20/21 09:06 Attending physician: HARMAN LANDON MD 03/20/21 11:24 Consult to Physician [CONS] Routine Comment: Consulting Provider: ZUHAIR SEGUNDO Physician Instructions: Reason For Exam: Acute respiratory failure Primary care physician: [employer] Hospitalization Reason for admission: COPD exacerbation Condition: Stable Hospital course: 65-year-old male with a past medical history of COPD, hypertension, and looking presents to the hospital complaints of shortness of breath since evening. Patient chronically takes 2 to 3 L of home oxygen and states he has been placed on hospice given 6 months life expectancy secondary to lung issues. Patient did not try nebulizer prior to ED arrival. EMS reports saturation 90% on 3 L. Patient provided albuterol 2.5 mg and placed on nonrebreather with improvement. Patient reports that his breathing status has improved but he complains of a toothache type of right sided lower chest pain. Pain is worse with movement and deep inspiration. Denies history of PE/DVT, cough, or fever. He continues to smoke cigarettes In the emergency room patient is found to have acute respiratory failure. Patient ABG showed pH 7.222, PCO2 one 1.7 PO2 88.5 bicarb 40.9 and O2 sat 96.6. Subsequently patient was put on BiPAP. We are going to put the patient on IMC overnight. Will consult pulmonary to see the patient Med rec is done 03/21: Patient seen and examined this morning reports improvement in his clinical status. Did have extensive discussion with him he tells me that he has had blood transfusion in the past due to anemia not sure why he had the anemia at the time. He still wants to continue hospice he also wants to think about his CODE STATUS he knows that he does not want to be intubated for prolonged period of time. But he tells me that if something was to happen now that he does not want to be intubated. The nurses to verify due to the confusion that I assessed on him. Nevertheless it appears that he did not get any clear direction from the hospice team and came to come to the hospital he does not want to revoke hospice at this time. I think he can be safely discharged after transfusion of 1 unit packed red blood cell as his hemoglobin is 6.1 for palliative cases and also I did give him 50 minutes counseling on need to stop tobacco use and he verbalized understanding. Is clinically stable for discharge will go on tapering dose of steroids. (1) Acute hypoxemic respiratory failure Current Visit: No Status: Acute Plan to address problem: Admit the patient to the [facility] overnight. Patient is on BiPAP. DuoNeb by nebulizer every 4 hours. Albuterol via nebulizer every 4 hours as needed. Solu-Medrol 40 mg IV daily 6 hours. Zithromax to 50 mg p.o. daily. Singular 10 mg p.o. daily. Pulmonary consult (2) end-stage COPD exacerbation Current Visit: Yes Status: Acute Plan to address problem: BiPAP. DuoNeb by nebulizer every 4 hours. Albuterol via nebulizer every 4 hours as needed. Solu-Medrol 40 mg IV daily 6 hours. Zithromax to 50 mg p.o. daily. Singular 10 mg p.o. daily. Pulmonary consult (3) Tobacco abuse Current Visit: Yes Status: Acute Plan to address problem: We counseled regarding quit smoking. We provide the patient with nicotine patch (4) Hypertension Current Visit: No Status: Acute Plan to address problem: Amlodipine 5 mg p.o. daily. Amiloride/hydrochlorothiazide 5/50 mg p.o. daily. We will continue the home medication. (5) acute blood loss anemia (6) centrilobular emphysema Disposition: 50 HOSPICE/HOME Final Discharge Diagnosis (Prints w/discharge instructions): Acute hypoxemic respiratory failure and end-stage COPD with exacerbation Time spent for discharge: 35 minutes Core Measure Documentation - Palliative Care Palliative Care/ Comfort Measures: Hospice Care - Core Measures Any of the following diagnoses?: none Exam - Physical Exam Narrative exam: VITAL SIGNS: Reviewed. GENERAL: The patient appears normally developed, Vital signs as documented. HEAD: No signs of head trauma. EYES: Pupils are equal. Extraocular motions intact. EARS: Hearing grossly intact. MOUTH: Oropharynx is normal. NECK: No adenopathy, no JVD. CHEST: Chest with crackles breath sounds bilaterally. No wheezes. CARDIAC: Regular rate and rhythm. S1 and S2, without murmurs, gallops, or rubs. VASCULAR: No Edema. Peripheral pulses normal and equal in all extremities. ABDOMEN: Soft, non tender and non distended. No rebound or guarding, and no masses palpated. Bowel Sounds normal. MUSCULOSKELETAL: Good range of motion of all major joints. Extremities without clubbing, cyanosis or edema. NEUROLOGIC EXAM: Alert and oriented x 3 No focal sensory or strength deficits. Speech normal. Follows commands. PSYCHIATRIC: Mood normal. SKIN: detail exam as documented in skin assessment - Constitutional Vitals: Temp Pulse Resp BP Pulse Ox 98.0 F 107 H 18 140/69 100 03/21/21 08:43 03/21/21 08:43 03/21/21 08:43 03/21/21 08:43 03/21/21 08:43 Plan Activity: advance as tolerated, fall precautions Diet: low fat Special Instructions: record daily weights, record daily BP diary, smoking cessation Plan of Treatment: further management per Hospice Team Follow up with: PRIMARY CARE,MD [Primary Care Provider] - 3-5 Days Prescriptions: Famotidine [Pepcid] 20 mg PO BID #60 tablet Prednisone [predniSONE 10 mg (6-Day Pack, 21 Tabs)] 10 mg PO .TAPER 6 Days #1 tab.ds.pk Azithromycin [Zithromax TAB] 250 mg PO QDAY #5 tablet
[2021-03-21] MEDS ORDERED: AZITHROMYCIN 250 MG TAB PO SCH (10:00)
[2021-03-21] MEDS ORDERED: amLODIPine 5 MG TAB PO SCH (10:00)
[2021-03-21] MEDS ORDERED: SODIUM CHLORIDE 0.9% 500 ML 500 ML IV SCH (10:00)
[2021-03-21] MEDS ORDERED: ALBUTEROL 2.5 MG/3 ML NEBU IH PRN (11:30)
[2021-03-21 11:43] LABS: Anisocytosis 2+; Band Neutrophils # (Manual) 0.1 K/mm3; Hypochromasia 2+; Myelocytes # (Manual) 0.1 K/mm3; Total Cells Counted 100
[2021-03-21 11:44] LABS: Platelet Estimate Consistent w Auto
[2021-03-21] MEDS ORDERED: IPRATROPIUM/ALBUTEROL SULFATE 3 ML AMPUL.NEB IH SCH (14:00)
[2021-03-21 16:56] VITALS: BP 130/82
[2021-03-21] MEDS ORDERED: ARFORMOTEROL 15 MCG/2 ML NEBU IH SCH (20:00)
[2021-03-21] MEDS ORDERED: BUDESONIDE 0.5 MG/2 ML NEBU IH SCH (20:00)
[2021-03-22] MEDS ORDERED: AZITHROMYCIN 250 MG TAB PO SCH (10:00)
--- NOTE | 2021-03-22 11:26 | Electrocardiograph Report ---
[facility] Test Date: 2021-03-20 Test Time: 05:21:53 Pat Name: ZARI UREÑA Department: Room: A457 Gender: M House Repairer: ED : 1955 Requested By: PIA PAKR Order Number: [id number] Reading MD: Crow Dodson Measurements Intervals [place] Rate: 105 P: 69 MI: 159 QRS: 69 QRSD: 80 T: 61 QT: 336 QTc: 435 Interpretive Statements Sinus tachycardia Poor quality ECG with marked baseline artifact Compared to ECG 09/01/2020 12:13:01 Sinus rate has increased Electronically Signed On 03-22-2021 11:26:33 EST by Crow Dodson
== END 2021-03-21 18:26 | disposition hospice, home (50) ==
LOC: ED 05:03 → IMCU 09:06 → 4A 03-21 05:06
PROVIDERS: ADMIT Hospitalist; ATTEND Internal Medicine
DX: J96.01 Acute respiratory failure with hypoxia (principal); D64.9 Anemia, unspecified; J43.2 Centrilobular emphysema; I10 Essential (primary) hypertension; C95.90 Leukemia, unspecified not having achieved remission; E87.2 Acidosis; Z99.81 Dependence on supplemental oxygen; Z87.891 Personal history of nicotine dependence
CPT/HCPCS: 36415; 36430; 71045; 80048; 82803; 85025; 85379; 86850; 86900; 86901; 86920; 93005; 94640; 94644; 94660; 94760; 96372; 96374; 96375; 96376; 99291; G0378; J1644; J2270; J2405; J2920; J2930; J7040; P9016; 85007

== ENCOUNTER 2021-04-17 10:55 | Emergency (ER) | payer MEDICARE, OTHER ==
[2021-04-17] MEDS ORDERED: ALBUTEROL 2.5 MG/3 ML NEBU IH ONE (10:58)
--- NOTE | 2021-04-17 11:01 | Event Note ---
Date: 04/17/21 Verbal report received from emergency medical services. EMS documentation not available at time of chart dictation Patient is a 65-year-old gentleman, with a history of chronic respiratory failure, COPD, multiple myeloma, on home oxygen, to negative recent D-dimers at this hospital, presenting to the ER with resolved painless shortness of breath. EMS treated this patient empirically for COPD exacerbation, with albuterol, Atrovent, steroids and magnesium. The patient states that he feels improved at this time. He denies physical pain at this time. Check EKG, x-ray the chest, appropriate laboratory studies, administer additional albuterol, continue home oxygen, reassess, complete/detailed history and physical to be performed by ER provider.
--- NOTE | 2021-04-17 11:33 | XRay Report ---
CHEST 2 VIEWS INDICATION / CLINICAL INFORMATION: Dyspnea. COMPARISON: 03/20/2021 FINDINGS: SUPPORT DEVICES: None. HEART / MEDIASTINUM: No significant abnormality. LUNGS / PLEURA: No significant pulmonary or pleural abnormality. No pneumothorax. ADDITIONAL FINDINGS: No significant additional findings. IMPRESSION: 1. No acute findings. Signer Name: Sotero Mendez MD Signed: 04/17/2021 11:29 AM Workstation Name: [id number]
[2021-04-17 11:52] LABS: Mean Corpuscular HGB Conc 29 % (32-34); Mean Corpuscular Volume 72 fl (84-94); Platelet Count 608 K/mm3 (140-440); Red Blood Count 4.79 M/mm3 (3.65-5.03)
[2021-04-17 11:53] LABS: Hematocrit 34.2 % (35.5-45.6); Hemoglobin 9.8 gm/dl (11.8-15.2); Red Cell Distribution Width 27.8 % (13.2-15.2)
[2021-04-17 11:57] LABS: INR 0.97 (0.87-1.13)
[2021-04-17 12:09] LABS: BUN/Creatinine Ratio 12; Blood Urea Nitrogen 12 mg/dL (9-20); Calcium 8.9 mg/dL (8.4-10.2); Hemolysis Index 2
[2021-04-17 12:53] LABS: Total Cells Counted 100
[2021-04-17 12:54] LABS: Anisocytosis 3+; Hypochromasia 2+; Ovalocytes 1+; Poikilocytosis 2+
[2021-04-17 12:55] LABS: Large Platelets 1+; Platelet Estimate Cons; Target Cells Few; Tear Drop Cells 1+
[2021-04-17] MEDS ORDERED: NITROGLYCERIN 0.4 MG TAB SUBL SL PRN (12:56)
[2021-04-17] MEDS ORDERED: ASPIRIN 81 MG TAB CHEW PO ONE (12:56)
[2021-04-17] MEDS ORDERED: ACETAMINOPHEN 500 MG TAB PO ONE (12:56)
[2021-04-17] MEDS ORDERED: PANTOPRAZOLE 40 MG TAB PO ONE (12:56)
--- NOTE | 2021-04-17 12:57 | Emergency Department Report ---
ED General Adult HPI - General Chief complaint: Dyspnea/Respdistress Stated complaint: DIFFICULTY BREATHING PUI?: No Time Seen by Provider: 04/17/21 12:55 Source: patient, EMS (Verbal report received from emergency medical services. EMS documentation not available at time of chart dictation ), RN notes reviewed, old records reviewed Mode of arrival: Stretcher Limitations: No Limitations - History of Present Illness Initial comments: The patient is a pleasant 65-year-old gentleman. He typically follows at the [facility]. He has a history of COPD, chronic respiratory failure, anemia, and multiple myeloma. He presents to the ER today via EMS with a complaint of painless shortness of breath. EMS provided the patient with albuterol, steroids, and magnesium. The patient states that he feels back to his baseline. At the moment he denies physical pain. He states that he does get right-sided nonradiating and central chest tightness, without vomiting or diaphoresis associated with his COPD exacerbations. He states that he feels back to his baseline, and he would like to be discharged. No recent stress test or cardiac risk ratification that he is aware of -: Gradual, days(s) Consistency: now resolved Improves with: medication Worsens with: none - Related Data Home Medications Medication Instructions Recorded Confirmed Last Taken Hydroxyurea [Hydrea] 500 mg PO BID 03/21/21 03/21/21 Unknown LORazepam [Ativan] 1 mg PO Q4H PRN 03/21/21 03/21/21 Unknown hydroCHLOROthiazide 50 mg PO QDAY 03/21/21 03/21/21 Unknown [Hydrochlorothiazide] Previous Rx's Medication Instructions Recorded Last Taken Type Albuterol Sulfate [Proair 90 mcg IH Q4HR PRN #2 aer.pow.ba 06/16/20 Unknown Rx Respiclick] amLODIPine 5 mg PO QDAY #30 tablet 06/30/20 08/31/20 Rx Ferrous Sulfate [Feosol 325 MG tab] 325 mg PO TID #90 tablet 08/31/20 08/31/20 Rx Albuterol Sulfate [Proventil Hfa] 2 puff IH Q4HR PRN #1 hfa.aer.ad 09/04/20 Unknown Rx Ipratropium [Atrovent NEB] 0.5 mg IH Q4HR 30 Days #50 09/04/20 Unknown Rx Albuterol Sulfate [Proair 90 mcg IH Q4HR PRN #2 aer.pow.ba 04/17/21 Unknown Rx Respiclick] DOXYCYCLINE Hyclate [Vibramycin] 100 mg PO Q12HR #10 capsule 04/17/21 Unknown Rx Ipratropium (Nf) [Atrovent] 2 puff IH Q6HR PRN #1 inha 04/17/21 Unknown Rx predniSONE [Deltasone] 40 mg PO QDAY #8 tab 04/17/21 Unknown Rx Allergies Allergy/AdvReac Type Severity Reaction Status Date / Time No Known Allergies Allergy Verified 09/01/20 09:48 ED Review of Systems ROS: Stated complaint: DIFFICULTY BREATHING Other details as noted in HPI Constitutional: denies: diaphoresis ENT: congestion. denies: epistaxis Respiratory: cough Cardiovascular: dyspnea on exertion. denies: syncope Gastrointestinal: denies: abdominal pain, nausea, vomiting Musculoskeletal: denies: back pain Neurological: weakness (Chronic) ED Past Medical Hx - Past Medical History Hx Hypertension: Yes Hx COPD: Yes Additional medical history: Leukemia - Social History Smoking Status: Current Every Day Smoker - Medications Home Medications: Home Medications Medication Instructions Recorded Confirmed Last Taken Type Albuterol Sulfate [Proair 90 mcg IH Q4HR PRN #2 aer.pow.ba 06/16/20 03/21/21 Unknown Rx Respiclick] amLODIPine 5 mg PO QDAY #30 tablet 06/30/20 03/21/21 08/31/20 Rx Ferrous Sulfate [Feosol 325 MG tab] 325 mg PO TID #90 tablet 08/31/20 03/21/21 08/31/20 Rx Albuterol Sulfate [Proventil Hfa] 2 puff IH Q4HR PRN #1 hfa.aer.ad 09/04/20 03/21/21 Unknown Rx Ipratropium [Atrovent NEB] 0.5 mg IH Q4HR 30 Days #50 09/04/20 03/21/21 Unknown Rx Hydroxyurea [Hydrea] 500 mg PO BID 03/21/21 03/21/21 Unknown History LORazepam [Ativan] 1 mg PO Q4H PRN 03/21/21 03/21/21 Unknown History hydroCHLOROthiazide 50 mg PO QDAY 03/21/21 03/21/21 Unknown History [Hydrochlorothiazide] Albuterol Sulfate [Proair 90 mcg IH Q4HR PRN #2 aer.pow.ba 04/17/21 Unknown Rx Respiclick] DOXYCYCLINE Hyclate [Vibramycin] 100 mg PO Q12HR #10 capsule 04/17/21 Unknown Rx Ipratropium (Nf) [Atrovent] 2 puff IH Q6HR PRN #1 inha 04/17/21 Unknown Rx predniSONE [Deltasone] 40 mg PO QDAY #8 tab 04/17/21 Unknown Rx ED Physical Exam - General Limitations: No Limitations General appearance: alert, in no apparent distress - Head Head exam: Present: atraumatic, normocephalic - Eye Eye exam: Present: normal appearance, EOMI. Absent: nystagmus - ENT ENT exam: Present: normal exam, normal orophraynx, mucous membranes moist, normal external ear exam - Neck Neck exam: Present: normal inspection, full ROM. Absent: tenderness, meningismus - Respiratory Respiratory exam: Present: decreased breath sounds. Absent: respiratory distress, wheezes, rales, rhonchi, stridor - Cardiovascular Cardiovascular Exam: Present: regular rate, normal rhythm, normal heart sounds. Absent: bradycardia, tachycardia, irregular rhythm, systolic murmur, diastolic murmur, rubs, gallop - GI/Abdominal GI/Abdominal exam: Present: soft. Absent: distended, tenderness, guarding, rebound, rigid, pulsatile mass - Rectal Rectal exam: Present: deferred - Extremities Exam Extremities exam: Present: normal inspection, full ROM, other (2+ pulses noted in the bilateral upper and lower extremities. There is no palpable cord. nega tive Homans sign. Muscular compartments are soft. The pelvis is stable.). Absent: pedal edema, calf tenderness - Back Exam Back exam: Present: normal inspection, full ROM. Absent: tenderness, CVA tenderness (R), CVA tenderness (L), paraspinal tenderness, vertebral tenderness - Neurological Exam Neurological exam: Present: alert, oriented X3, normal gait, other (No facial droop. Tongue midline. Extraocular movements intact bilaterally. Facial sensation intact to light touch in V1, V2, V3 distribution bilaterally. 5 and a 5 strength in 4 extremities. Sensation intact to light touch in 4 extremities.). Absent: motor sensory deficit - Psychiatric Psychiatric exam: Present: normal affect, normal mood - Skin Skin exam: Present: warm, dry, intact, normal color. Absent: rash ED Course Vital Signs 04/17/21 04/17/21 10:56 16:23 Temperature 97.6 F Pulse Rate 78 74 Respiratory 16 18 Rate Blood Pressure 160/90 154/68 [Right] O2 Sat by Pulse 99 99 Oximetry - Reevaluation(s) Reevaluation #1: 04/17/21 14:22 Differential diagnosis, including but not limited to: COPD exacerbation, type II troponin leak, pulmonary embolism, chronic coronary artery disease Assessment and plan: 65-year-old gentleman, who was afebrile, with reassuring vital signs, in no acute respiratory distress at this time, with a complaint of painless shortness of breath. X-ray of the chest unremarkable. D-dimer negative. Not currently tachycardic, tachypneic, or hypoxic. I also find the patient to be low risk by Wells criteria for pulmonary embolism. His EKG appears to be unchanged from prior. He did have a slightly elevated troponin, in the context of shortness of breath, I suspect that this is a type II troponin leak. I did offer the patient admission, which he declined, and he preferred to be discharged. I suspect that this is a type II leak and we also obtained a cardiology consultation over the phone from Dr. Pop. Discussed the patient's history, physical, laboratory studies, imaging studies, chest x-ray findings, and overall clinical impression. We are both of the agreement that this is likely a type II leak, and unlikely to represent acute ischemia, given that the patient is not having any physical pain at this time. Repeat EKG, repeat troponin pending, presuming they are at baseline compared to prior from earlier on today, or decreasing, we agreed that it would be reasonable to discharge this patient as an outpatient for follow-up. I did have an extensive discussion with the patient regarding risks, benefits, alternatives for hospitalization versus discharge. The patient states that he wants to be discharged, presuming repeat testing is unremarkable and unchanged. Patient presents as awake, alert, oriented, sober and of sound mind, and exhibits decision-making capacity. Therefore, through shared decision-making, presuming unremarkable troponin/unchanged troponin, and unchanged EKG, plan to discharge as an outpatient. Care be transferred to the oncoming ER physician, Dr Timo Yao, to follow-up on repeat EKG, repeat troponin, and if unchanged, discharge for follow-up 04/17/21 14:46 04/17/21 14:55 04/17/21 15:19 Repeat EKG is unchanged from prior. Repeat troponin pending. Patient resting comfortably in stretcher. He is in no acute distress. 04/17/21 15:32 Troponin downtrending. This is likely a type II leak. Patient endorses that he is chest pain-free at this time. ED Medical Decision Making - Lab Data Result diagrams: 04/17/21 11:28 04/17/21 11:28 Vital Signs 04/17/21 10:56 Temperature 97.6 F Pulse Rate 78 Respiratory 16 Rate Blood Pressure 160/90 [Right] O2 Sat by Pulse 99 Oximetry Lab Results 04/17/21 04/17/21 04/17/21 Range/Units 11:28 11:28 11:28 WBC 8.0 (4.5-11.0) K/mm3 RBC 4.79 (3.65-5.03) M/mm3 Hgb 9.8 L (11.8-15.2) gm/dl Hct 34.2 L (35.5-45.6) % MCV 72 L (84-94) fl MCH 20 L (28-32) pg MCHC 29 L (32-34) % RDW 27.8 H (13.2-15.2) % Plt Count 608 H (140-440) K/mm3 Add Manual Diff Complete Total Counted 100 Seg Neuts % (Manual) 92.0 H (40.0-70.0) % Lymphocytes % (Manual) 5.0 L (13.4-35.0) % Monocytes % (Manual) 2.0 (0.0-7.3) % Basophils % (Manual) 1.0 (0.0-1.8) % Nucleated RBC % Not Reportable Seg Neutrophils # Man 7.4 (1.8-7.7) K/mm3 Band Neutrophils # 0.0 K/mm3 Lymphocytes # (Manual) 0.4 L (1.2-5.4) K/mm3 Abs React Lymphs (Man) 0.0 K/mm3 Monocytes # (Manual) 0.2 (0.0-0.8) K/mm3 Eosinophils # (Manual) 0.0 (0.0-0.4) K/mm3 Basophils # (Manual) 0.1 (0.0-0.1) K/mm3 Metamyelocytes # 0.0 K/mm3 Myelocytes # 0.0 K/mm3 Promyelocytes # 0.0 K/mm3 Blast Cells # 0.0 K/mm3 WBC Morphology Not Reportable Hypersegmented Neuts Not Reportable Hyposegmented Neuts Not Reportable Hypogranular Neuts Not Reportable Smudge Cells Not Reportable Toxic Granulation Not Reportable Toxic Vacuolation Not Reportable Dohle Bodies Not Reportable Pelger-Huet Anomaly Not Reportable [place] Rods Not Reportable Platelet Estimate Cons Clumped Platelets Not Reportable Plt Clumps, EDTA Not Reportable Large Platelets 1+ Giant Platelets Not Reportable Platelet Satelliting Not Reportable Plt Morphology Comment Not Reportable RBC Morphology Not Reportable Dimorphic RBCs Not Reportable Polychromasia Not Reportable Hypochromasia 2+ Poikilocytosis 2+ Anisocytosis 3+ Microcytosis 1+ Macrocytosis Not Reportable Spherocytes Not Reportable Pappenheimer Bodies Not Reportable Sickle Cells Not Reportable Target Cells Few Tear Drop Cells 1+ Ovalocytes 1+ Helmet Cells Not Reportable Mann-[place] Bodies Not Reportable [place] Rings Not Reportable [place]bine Cells Not Reportable Bite Cells Not Reportable Crenated Cell Not Reportable Elliptocytes Few Acanthocytes (Spur) Not Reportable Rouleaux Not Reportable Hemoglobin C Crystals Not Reportable Schistocytes Not Reportable Malaria parasites Not Reportable Lefty Bodies Not Reportable Hem Pathologist Commnt No PT 14.0 (12.2-14.9) Sec. INR 0.97 (0.87-1.13) D-Dimer (0-234) ng/mlDDU Sodium 143 (137-145) mmol/L Potassium 4.2 (3.6-5.0) mmol/L Chloride 98.4 (98-107) mmol/L Carbon Dioxide 29 (22-30) mmol/L Anion Gap 20 mmol/L BUN 12 (9-20) mg/dL Creatinine 1.0 (0.8-1.3) mg/dL Estimated GFR > 60 ml/min BUN/Creatinine Ratio 12 % Glucose 125 H (75-100) mg/dL Calcium 8.9 (8.4-10.2) mg/dL Troponin T 0.059 H (0.00-0.029) ng/mL 04/17/21 Range/Units 11:28 WBC (4.5-11.0) K/mm3 RBC (3.65-5.03) M/mm3 Hgb (11.8-15.2) gm/dl Hct (35.5-45.6) % MCV (84-94) fl MCH (28-32) pg MCHC (32-34) % RDW (13.2-15.2) % Plt Count (140-440) K/mm3 Add Manual Diff Total Counted Seg Neuts % (Manual) (40.0-70.0) % Lymphocytes % (Manual) (13.4-35.0) % Monocytes % (Manual) (0.0-7.3) % Basophils % (Manual) (0.0-1.8) % Nucleated RBC % Seg Neutrophils # Man (1.8-7.7) K/mm3 Band Neutrophils # K/mm3 Lymphocytes # (Manual) (1.2-5.4) K/mm3 Abs React Lymphs (Man) K/mm3 Monocytes # (Manual) (0.0-0.8) K/mm3 Eosinophils # (Manual) (0.0-0.4) K/mm3 Basophils # (Manual) (0.0-0.1) K/mm3 Metamyelocytes # K/mm3 Myelocytes # K/mm3 Promyelocytes # K/mm3 Blast Cells # K/mm3 WBC Morphology Hypersegmented Neuts Hyposegmented Neuts Hypogranular Neuts Smudge Cells Toxic Granulation Toxic Vacuolation Dohle Bodies Pelger-Huet Anomaly Jacinta Rods Platelet Estimate Clumped Platelets Plt Clumps, EDTA Large Platelets Giant Platelets Platelet Satelliting Plt Morphology Comment RBC Morphology Dimorphic RBCs Polychromasia Hypochromasia Poikilocytosis Anisocytosis Microcytosis Macrocytosis Spherocytes Pappenheimer Bodies Sickle Cells Target Cells Tear Drop Cells Ovalocytes Helmet Cells Mann-[place] Bodies [place] Rings [place]ine Cells Bite Cells Crenated Cell Elliptocytes Acanthocytes (Spur) Rouleaux Hemoglobin C Crystals Schistocytes Malaria parasites Lefty Bodies Hem Pathologist Commnt PT (12.2-14.9) Sec. INR (0.87-1.13) D-Dimer 142.40 (0-234) ng/mlDDU Sodium (137-145) mmol/L Potassium (3.6-5.0) mmol/L Chloride (98-107) mmol/L Carbon Dioxide (22-30) mmol/L Anion Gap mmol/L BUN (9-20) mg/dL Creatinine (0.8-1.3) mg/dL Estimated GFR ml/min BUN/Creatinine Ratio % Glucose (75-100) mg/dL Calcium (8.4-10.2) mg/dL Troponin T (0.00-0.029) ng/mL - EKG Data -: EKG Interpreted by In EKG shows normal: sinus rhythm Rate: normal - EKG Data Interpretation: unchanged when compared t 04/17/21 14:22 EKG today is interpreted at 13: 07 Sinus rhythm, rate 85 bpm. Normal axis, normal P wave axis, the QTC is 4 5 6 ms. There is motion artifact, and lateral leads left ventricular hypertrophy. This is an abnormal EKG. This is not a STEMI. Appears essentially unchanged w hen compared to EKGs from March 2021, with the exception of negatively deflected complexes in V3, likely secondary to lead placement. - Radiology Data Radiology results: pending, report reviewed, image reviewed CHEST 2 VIEWS INDICATION / CLINICAL INFORMATION: Dyspnea. COMPARISON: 03/20/2021 FINDINGS: SUPPORT DEVICES: None. HEART / MEDIASTINUM: No si gnificant abnormality. LUNGS / PLEURA: No significant pulmonary or pleural abnormality. No pneumothorax. ADDITIONAL FINDINGS: No significant additional findings. IMPRESSION: 1. No acute findings. Signer Name: Sotero Mendez MD Signed: 04/17/2021 10:29 AM Workstation Name: [id number] Critical care attestation.: If time is entered above; I have spent that time in minutes in the direct care of this critically ill patient, excluding procedure time. ED Disposition Clinical Impression: COPD exacerbation, Abnormal laboratory test Disposition: 01 HOME / SELF CARE / HOMELESS Is pt being admited?: No Does the pt Need Aspirin: No Condition: Good Instructions: COPD and Physical Activity, Chronic Obstructive Pulmonary Disease (ED) Additional Instructions: Please take the medications as needed and directed. Please follow-up with an outpatient primary care doctor or lead application architect, such as Dr. Pop, within the next 3 days for outpatient evaluation of nonspecifically elevated troponin, which was noted on laboratory testing today. We suspect that elevated troponin, which can be a marker for heart damage, is likely coming from underlying COPD. Please follow-up with your sharepoint application architect, such as Dr. Rogers, within the next 7 to 10 days. Please continue current outpatient medications. Please take a daily baby aspirin [id number]. Please return to the emergency room right away with new pain, worsened pain, migration of pain, projectile vomiting, change in mental status, confusion, inability to tolerate liquid feeds, new, worsened or different symptoms not present on the initial emergency room evaluation Prescriptions: Ipratropium (Nf) [Atrovent] 2 puff IH Q6HR PRN #1 inha PRN Reason: Wheezing predniSONE [Deltasone] 40 mg PO QDAY #8 tab Albuterol Sulfate [Proair Respiclick] 90 mcg IH Q4HR PRN #2 aer.pow.ba PRN Reason: Wheezing DOXYCYCLINE Hyclate [Vibramycin] 100 mg PO Q12HR #10 capsule Referrals: DEAN POP MD [Staff Physician] - 3-5 Days ZUHAIR ROGERS MD [Staff Physician] - 3-5 Days
[2021-04-17 16:24] VITALS: BP 154/68
[2021-04-17 16:34] LABS: Chol/HDL Ratio 1.97 %
--- NOTE | 2021-04-19 14:28 | Electrocardiograph Report ---
[facility] Test Date: 2021-04-17 Test Time: 13:07:38 Pat Name: ZARI UREÑA Department: Room: Gender: M Bead Supervisor: ELISSA : 1955 Requested By: PIA PARK Order Number: [id number] Reading MD: Crow Dodson Measurements Intervals [place] Rate: 85 P: 70 MO: 160 QRS: 41 QRSD: 83 T: 78 QT: 383 QTc: 456 Interpretive Statements Sinus rhythm Compared to ECG 03/20/2021 05:21:53 No significant change Electronically Signed On 04-19-2021 14:27:52 EST by Crow Dodson
--- NOTE | 2021-04-19 14:29 | Electrocardiograph Report ---
[facility] Test Date: 2021-04-17 Test Time: 14:55:24 Pat Name: ZARI UREÑA Department: Room: Gender: M Board Design Engineer: ELISSA : 1955 Requested By: PIA PARK Order Number: [id number] Reading MD: Crow Dodson Measurements Intervals [place] Rate: 94 P: 59 AK: 160 QRS: 46 QRSD: 91 T: 85 QT: 373 QTc: 466 Interpretive Statements Sinus rhythm Compared to ECG 04/17/2021 13:07:38 No significant changes Electronically Signed On 04-19-2021 14:29:30 EST by Crow Dodson
== END 2021-04-17 16:24 | disposition home or self-care (01) ==
LOC: ED 10:55
DX: J44.1 Chronic obstructive pulmonary disease with (acute) exacerbation (principal); R79.9 Abnormal finding of blood chemistry, unspecified
CPT/HCPCS: 36415; 71046; 80048; 80061; 84484; 85007; 85025; 85379; 85610; 93005; 94640; 99284